=== PATIENT | female | born 1980 | race African-American/Black ===

== ENCOUNTER → 2020-06-21 16:32 | Outpatient (CLI) | payer BC, SELFPAY ==
--- NOTE | ~2020-06-21 | MM_ITS ---
EXAMINATION: MM screening roe BI w guero HISTORY: Screening mammogram TECHNIQUE: Craniocaudal and mediolateral oblique 3-D tomosynthesis images were obtained and synthetic 2-D images were generated. CAD analysis was submitted and interpreted. COMPARISON: No prior mammogram is available for comparison at this institution. BREAST PARENCHYMAL COMPOSITION: The breasts are almost entirely fatty. FINDINGS: There is no evidence of suspicious mass, calcification, or architectural distortion to sugg est malignancy in either breast. There has been no suspicious interval change. IMPRESSION: 1. No mammographic evidence of malignancy. 2. Recommend routine screening mammography in one year. BI-RADS Category 1: Negative Reviewed, dictated and finalized at location A. [facility]
== END ==
PROVIDERS: PCP Physician Assistant; Visit Provider Physician Assistant
DX: Z12.31 Encounter for screening mammogram for malignant neoplasm of breast (principal)
CPT/HCPCS: 77063; 77067

== ENCOUNTER 2020-11-13 13:05 | Emergency (ER) | payer BC, SELFPAY ==
[2020-11-13] VITALS (33 sets, daily range): BP systolic 123–155; BP diastolic 77–112; PULSE 73–113; RESP 11–24; TEMP 36.6; O2SAT 95–100
--- NOTE | ~2020-11-13 | XR_ITS ---
EXAMINATION: XR chest 2V 11/13/2020 13:39 INDICATION: Chest tightness PROCEDURE: 2 view chest COMPARISON: 07/11/2017 FINDINGS: The lungs are clear. The cardiomediastinal silhouette is within normal limits. There are no pleural effusions. There is no pneumothorax suspected. IMPRESSION: 1: NO ACUTE CARDIOPULMONARY DISEASE. Reviewed, dictated and finalized at location B.
--- NOTE | 2020-11-13 13:09 | ECG_ITS ---
Measurements Intervals Prosser Rate: 87 P: 34 OK: 120 QRS: -12 QRSD: 85 T: 35 QT: 356 QTc: 429 Interpretive Statements SINUS RHYTHM BORDERLINE R WAVE PROGRESSION, ANTERIOR LEADS BORDERLINE ECG Electronically Signed On 11-13-2020 13:32:34 CDT by Carlos Montana D.O.
[2020-11-13 13:28] LABS: Basophils Percent Auto 0.5 % (0.2-1.2); Eosinophils Percent Auto 0.5 % (0-4.4); Hematocrit 41.8 % (37.0-47.0); Hemoglobin 13.2 g/dL (12.0-15.0); Immature Granulocyte Absolute 0.02 K/mm3 (0.00-0.031); Immature Granulocyte Percent A 0.3 % (0-0.5); Lymphocytes Absolute Auto 1.83 K/mm3 (0.9-3.2); Lymphocytes Percent Auto 29.8 % (18.3-44.2); Mean Corpuscular HGB Conc 31.6 g/dl (32-36); Mean Corpuscular Hemoglobin 29.3 pg (26-34); Mean Corpuscular Volume 92.9 fl (80-100); Mean Platelet Volume 10.9 fl (7.4-10.4); Monocytes Absolute Auto 0.4 K/mm3 (0.1-0.6); Monocytes Percent Auto 6.7 % (2.6-8.5); Neutrophils Absolute Auto 3.8 K/mm3 (1.3-6.7); Neutrophils Percent Auto 62.2 % (45.5-73.1); Platelet Count Result 233 k/mm3 (150-375); Red Cell Distribution Width 13.3 % (11.5-14.5); White Blood Count 6.1 K/mm3 (4.5-10.0)
[2020-11-13 13:38] LABS: Anion Gap 9 mmol/L (8-16); Blood Urea Nitrogen 8 mg/dL (7-17); Calcium 9.4 mg/dL (8.4-10.2); Carbon Dioxide 27 mmol/L (22-30); Chloride 105 mmol/L (98-107); Estimated CRCL calculation 90 ml/min; Estimated Glomerular Filt Rate > 60; Glucose 127 mg/dL (65-105); INR 1.1; Potassium 4.2 mmol/L (3.4-5.0); Prothrombin Time 14.9 Seconds (11.1-14.7); Sodium 141 mmol/L (137-145)
[2020-11-13 13:39] LABS: Partial Thromboplastin Time 31.5 SECONDS (22.3-36.8)
[2020-11-13 13:50] LABS: Troponin I < 0.012 ng/mL (0.000-0.034)
[2020-11-13] MEDS: ASPIRIN 81 MG CHEWABLE TABLET 324 MG PO (14:44)
--- NOTE | 2020-11-13 15:04 | ED.GENADULT ---
HPI - General Adult General Chief complaint: Chest Pain Stated complaint: chest tightness Time Seen by Provider: 11/13/20 14:39 Source: patient History of Present Illness HPI narrative: Patient is a 40 y/o female complaining of waxing and waning chest pain starting several days ago. She states that her pain is located in midsternal area with radiation to back. She describes her pain as a pressure/tightness and rates it as 2-3/10. There is no alleviating or exacerbating factor. She has no SOB, cough or fever. Related Data Allergies Allergy/AdvReac Type Severity Reaction Status Date / Time No Known Allergies Allergy Unverified 11/09/15 10:08 Review of Systems Constitutional: Constitutional: Denies chills, Denies fever(s), Denies headache(s) and Denies weakness Eyes: Eyes: Denies blurry vision ENT: Denies headache(s) and Denies neck pain Cardiovascular: Cardiovascular: Reports chest pain and Denies dyspnea Respiratory: Respiratory: Denies cough and Denies dyspnea Gastrointestinal: Gastrointestinal: Denies abdominal pain, Denies diarrhea, Denies nausea and Denies vomiting Genitourinary: Genitourinary: Denies hematuria and Denies dysuria Musculoskeletal: Musculoskeletal: Denies back pain and Denies neck pain Neurologic: Denies headache(s) and Denies weakness PMFSH Past Medical History Medical History Borderline diabetes Hyperlipidemia Social History Social History Smoking status: Never smoker Exam Const: General: no acute distress and well developed Orientation/consciousness: oriented to person, oriented to place, oriented to time and patient oriented x3 HENMT: Head: normocephalic Ears: external ears normal General nose exam: Normal external nose present Eyes: General: appearance normal, both eyes and all related structures Conjunctivae: conjunctivae normal Neck: Neck: normal visual inspection and full ROM Chest: Chest palpation & inspection: normal inspection of the chest and no tenderness Resp: Effort & Inspection: normal respiratory effort Auscultation: clear to auscultation bilaterally Cardio: Rate: regular rate Rhythm: regular rhythm GI: GI Palp: No abdominal tenderness and Yes Soft to palpation Skin: General skin exam: normal color and turgor normal Neuro: General: oriented to person, oriented to place, oriented to time and patient oriented x3 Cognition (Neuro): normal cognition Extrem: General: normal to inspection, full ROM and no pedal edema Psych: Appearance: grossly normal Mental Status: mental status grossly normal Affect: normal affect Course Vital Signs Vital signs: Vital Signs Temperature 36.6 C 11/13/20 13:20 Pulse Rate 90 11/13/20 13:20 Respiratory Rate 16 11/13/20 13:20 Blood Pressure 143/82 H 11/13/20 13:20 Pulse Oximetry 99 11/13/20 13:20 Temperature 36.6 C 11/13/20 13:20 Pulse Rate 85 11/13/20 18:01 Respiratory Rate 21 H 11/13/20 18:01 Blood Pressure 137/86 11/13/20 18:01 Pulse Oximetry 100 11/13/20 18:01 Medical Decision Making Vital Signs Vital Signs: Vital Signs Temperature 36.6 C 11/13/20 13:20 Pulse Rate 90 11/13/20 13:20 Respiratory Rate 16 11/13/20 13:20 Blood Pressure 143/82 H 11/13/20 13:20 Pulse Oximetry 99 11/13/20 13:20 Temperature 36.6 C 11/13/20 13:20 Pulse Rate 85 11/13/20 18:01 Respiratory Rate 21 H 11/13/20 18:01 Blood Pressure 137/86 11/13/20 18:01 Pulse Oximetry 100 11/13/20 18:01 Lab Data Result diagrams: 11/13/20 13:20 11/13/20 13:20 Labs: Lab Results 11/13/20 11/13/20 11/13/20 Range/Units 13:20 13:20 13:20 WBC 6.1 (4.5-10.0) K/mm3 RBC 4.50 (4.2-5.4) M/mm3 Hgb 13.2 (12.0-15.0) g/dL Hct 41.8 (37.0-47.0) % MCV 92.9 (80-100) fl MCH 29.3 (26-34) pg MCHC 31.6 L (32-36) g/dl RDW 13.3
[2020-11-13 17:01] LABS: Troponin I < 0.012 ng/mL (0.000-0.034)
== END 2020-11-13 19:16 | disposition home or self-care (01) ==
PROVIDERS: Emergency Provider Emergency Medicine; PCP Physician Assistant
DX: R07.2 Precordial pain (principal); R73.03 Prediabetes; E78.5 Hyperlipidemia, unspecified; R94.31 Abnormal electrocardiogram [ECG] [EKG]
CPT/HCPCS: 36415; 71046; 80048; 84484; 85025; 85610; 85730; 93005; 99284; A9270

== ENCOUNTER 2024-09-26 12:57 | Outpatient (CLI) | payer OTHER, SELFPAY ==
--- NOTE | ~2024-09-26 | MM_ITS ---
EXAMINATION: MM screening roe BI w guero HISTORY: Screening TECHNIQUE: Craniocaudal and mediolateral oblique 3-D tomosynthesis images were obtained and synthetic 2-D images were generated. CAD analysis was submitted and interpreted. COMPARISON: 06/21/2020 BREAST PARENCHYMAL COMPOSITION: Not dense: There are scattered areas of fibroglandular density. FINDINGS: There is no evidence of suspicious mass, calcification, or architectural distortion to sugg est malignancy in either breast. There has been no suspicious interval change. IMPRESSION: 1. No mammographic evidence of malignancy. 2. Recommend routine screening mammography in one year. BI-RADS Category 1: Negative Reviewed, dictated and finalized at location A.
--- OUTSIDE RECORDS SUMMARY | 2024-09-26 13:29 | XMS_ITS | Data Portability ---
Author Organization [facility] Address [address] [place] [address] Care Team Providers Care Associate Business Analyst Name Role Phone ROBINA MELGAR Primary Care Provider Unavailab le Assessment Encounter Date Assessment Date Assessment LastModified by Organization Details LastModified Time 08/15/2024 08/15/2024 due for pap smear due for mammogram UTD at [facility] UTD at Dr. Venu ruby due. Not available 08/15/2024 11:54:45 Plan of Treatment Reminders Order Date Submit Date Provider Last Modified By Organization Details Last Modified Time Details Appointments None recorded. Lab CMP, serum or plasma [facility], [address], [place], [address], 5 10:31:35 CBC w/ auto diff 2024 0[email or web address], [address], [place], [address], 5 10:31:35 lipid panel, serum 2024 025 [email or web address], [address], [place], [address], 5 10:31:35 noninvasive colorectal cancer DNA + occult blood screening, QL, stool 2024 025 [facility] (Cologuard Orders Only), [address], [address], [place], [address], 09:33:50 HbA1c (hemoglobin A1c), blood 2024 025 [email or web address], [address], [place], [address], 10:31:34 insulin, serum 2024 025 [email or web address], [address], [place], [address], 10:31:34 TSH + free T4, serum 2024 025 [email or web address], [address], [place], [address], 10:31:35 Referral None recorded. Procedures None recorded. Surgeries None recorded. Imaging MAMMO, screening, digital, bilateral [address] [facility], [address], [address], [place], [address], 10:31:52 Medication Orders None recorded. Patient TargetsNo targets recorded. Patient Instructions Encounter Date Encounter Id Patient Instructions Last Modified By Organization Details Last Modified Time 08/15/2024 [id number] A healthy lifestyle: care instructions Not available 08/15/2024 11:54:18 Reason for Referral None Reported. Results Created Date Observation Date Name Description Value Unit Range Abnormal Flag Note LastModifiedBy Organization Detail LastModifiedTime 08/26/1908/25/2024 COLOG UARD cologuard result reportable NEGATI VE negati ve normal NEGAT PAT TEST RESUL T. A negat pat Colog uard resul t indic ates a low likel ihood that a color ectal cance r (CRC) or advan luciano adeno ma (abi omato us polyp s with more advan luciano pre-m align ant featu res) is prese nt. The [facility] e that a perso n with a negat pat Colog uard test has a color ectal cance r is less than 1 in 1500 (nega tive predi ctive value >99.9 %) or has an advan luciano adeno ma is less than 5.3% (nega tive predi ctive value 94.7% ). These data are based on a prosp ectiv e cross -sect ional study of 10,00 0 indiv idual s at [place] ge risk for color ectal cance r who were scree loy with both Colog uard and colon oscop y. (Impe alicia T. et al, N Engl J Med 2014; 370(1 4):12 86-12 97) The jostin l value (refe rence range ) for this assay is negat pat. COLOG UARD RE-SC REENI NG RECOM MENDA TION: Perio dic color ectal cance r scree vinnie is an impor tant part of preve ntive healt hcare for asymp tomat ic indiv idual s at [place] ge risk for color ectal cance r. Follo wing a negat pat Colog uard resul t, the Ameri can Cance r Socie ty and U.S. Multi -Soci ety Task Force scree vinnie guide lines recom mend a Colog uard re-sc reeni ng inter bhanu of 3 years . Refer ences : Ameri can Cance r Socie ty Guide line for Color ectal Cance r Scree vinnie: https ://ena w.can cer.o rg/ca ncer/ colon -rect al-ca ncer/ detec tion- diagn osis- stagi ng/ac s-rec ommen datio ns.ht ml.; Bryn INGRAM, Johan bunch CR, Ayden MATAMOROS, Color ectal Cance r Scree vinnie: Recom menda tions for Physi cians and Patie nts from the U.S. Multi -Soci ety Task Force on Color ectal Cance r Scree vinnie , Brooke Daigle oente rolog y 2017; 112:1 016-1 030. TEST DESCR IPTIO N: [place] algor ithmi c evelina sis of stool DNA-b iomar kers with hemog lobin immun oassa y. Quant itati ve value s of indiv idual bioma rkers are not repor table and are not assoc iated with indiv idual bioma rker resul t refer ence range s. Colog uard is inten ded for color ectal cance r scree vinnie of adult s of eithe r sex, 45 years or older , who are [facility] for color ectal cance r (CRC) . Colog uard has been appro anne for use by the U.S. FDA. The perfo rmanc e of Colog uard was estab lishe d in a cross secti onal study of [facility] adult s aged 50-84 . Colog uard perfo rmanc e in patie nts ages 45 to 49 years was estim ated by sub-g roup evelina sis of near- age group s. Colon oscop ies perfo rmed for a posit pat resul t may find as the most clini krystal signi norberto t luis daniel n: color ectal cance r [4.0% ], advan luciano adeno ma (incl uding sessi le jennifer steve polyp s great er than or equal to 1cm diame ter) [20%] or non- advan luciano adeno ma [31%] ; or no color ectal neopl ty [45%] . These estim ates are deriv ed from a prosp ectiv e cross -sect ional scree vinnie study of 10,00 0 indiv idual s at [facility] risk for color ectal cance r who were scree loy with both Colog uard and colon oscop y. (Ajith Rodríguez al, N Engl J Med 2014; 370(1 4):12 86-12 97.) Colog uard may produ ce a false negat pat or false posit pat resul t (no color ectal cance r or preca ncero us polyp prese nt at colon oscop y follo w up). A negat pat Colog uard test resul t does not guara ntee the absen ce of CRC or advan luciano adeno ma (pre- cance r). The curre nt Colog uard scree vinnie inter bhanu is every 3 years . (Willa Neff r Socie ty and U.S. Multi -Soci ety Task Force ). Colog uard perfo rmanc e data in a 10,00 0 patie nt pivot al study using colon oscop y as the refer ence metho d can be acces sed at the follo wing locat ion: www.e xactl abs.c om/re sults . Addit ional descr iptio n of the Colog uard test proce ss, warni ngs and preca ution s can be found at www.c stacy yogesh.c om. Not Available [facility] (Cologuard Orders Only) [address], [place], [address], 08/29/2024 09:33:49 Result Notes None recorded. Problems Name Problem SNOMED Code Status Onset Date Resolution Date Notes Provider Name and Address Organization Details Recorded Time Body mass index 30+ - obesity 850445247 Active 2024 Karena Troy MA null, [place] - [facility] 11:34:47 Obesity 102358057 Active 2024 RICKEY Lewis Attn: Jassi dumont,[address] [place], [address], [facility] - SI 5 11:41:25 Hyperlipidemia 53228664 Active 2024 RICKEY Lewis Attn: Jassi dumont,[address] [place], [address], [facility] - SI 5 11:45:07 Family history of malignant neoplasm of breast in first degree relative 553765389 Active 2024 RICKEY Lewis Attn: Jassi dumont,[address] [place], [address], [facility] - SI 5 11:56:37 Long-term current use of drug therapy 908636739 Active 2024 RICKEY Lewis Attn: Jassi dumotn,[address] [place], [address], [facility] 22:50:53 Problem Notes None recorded. Procedures Surgical History Date Name Laterality Status Provider Name and Address Organization Details Recorded Time Appendectomy completed Karena Troy MA [facility] 08/15/2024 12:26:44 Imaging Results None recorded. Procedure Notes None recorded. Medical Equipment None Reported. Allergies No known drug allergies Medications Name Sig Start Date Stop Date Status Note LastModified by Organization Details LastModified Time spironolactone 100 mg tablet Take 1 tablet every day by oral route as needed. active Not Available Not Available No t Available Vitals Date Recorded Body weight Body mass index (BMI) Body height Oxygen saturation Oxygen saturation in Arterial blood by Pulse oximetry Heart rate Systolic blood pressure Diastolic blood pressure Provider Name and Address Organization Details Last Updated DateTime 011678. 98 g 39.3 kg/m2 165.74 cm 98 % 98 % 88 /min 112 mm[Hg] 80 mm[Hg] Karena Troy MA [facility] 11:36:19 Date Recorded Respiratory rate Systolic blood pressure Diastolic blood pressure Provider Name and Address Organization Details Last Updated DateTime 08/15/2024 16 /min 110 mm[Hg] 80 mm[Hg] RICKEY Lewis Attn: Accounting, [address], [place], [address], [facility] 08/15/2024 11:53:51 Social History Question Answer Notes LastModified by Organizat ion Details LastModified Time Tobacco Smoking Status Never Smoker Karena Troy MA null, [facility] 08/15/2024 11:33:53 Do You Have An Advance Directive? No Information not available 08/15/2024 What Is Your Level Of Alcohol Consumption? None Information not available 08/15/2024 Are You Blind Or Do You Have Difficulty Seeing? Yes Glasses Information not available 08/15/2024 What Is Your Level Of Caffeine Consumption? Occasional Information not available 08/15/2024 Are You Currently Employed? Yes Information not available 08/15/2024 Are You Deaf Or Do You Have Serious Difficulty Hearing? No Information not available 08/15/2024 What Type Of Diet Are You Following? 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 08/15/2024 Information not available 08/15/2024 What Is Your Relationship Status? Information not available 08/15/2024 Do You Use Your Seat Belt Or Car Seat Routinely? Yes Information not available 08/15/2024 Do You Use Any Illicit Or Recreational Drugs? No Information not available 08/15/2024 Do You Use Sunscreen Routinely? No Information not available 08/15/2024 Has Tobacco Cessation Counseling Been Provided? No Information not available 08/15/2024 Do You Or Have You Ever Used Any Other Forms Of Tobacco Or Nicotine? No Information not available 08/15/2024 Sex: Female Functional Status Question Answer Note LastModified by Organization D etails LastModified Time Are you able to care for yourself? Yes Information n ot available 08/15/2024 What is your exercise level? None Information not available 08/15/2024 Mental Status None recorded. Family History Relationship Description Onset Age of this Age Resolved Age Notes LastModified by Organization Details LastModified Time Maternal Aunt Multiple sclerosis [email or web address] Not available 2024 11:57:15 Maternal Aunt Amyotrophic lateral sclerosis [email or web address] Not available 2024 11:57:22 Maternal Aunt Family history of breast cancer [email or web address] Not available 2024 11:57:41 Mother Family history of breast cancer [email or web address] Not available 2024 11:57:32 Sister Blood coagulation disorder [email or web address] Not available 2024 12:26:56 Medical History Condition Response Coronary Artery Disease N Other N High Blood Pressure N Atrial Fibrillation N Kidney or Bladder Problems N Thyroid Problems N GI Problems N Depression N COPD N Blood Clots N Have you had a mammogram in the last yea r? N Skin Problems N Anemia N Heart Attack ([place]) N Anxiety Disorder N Diabetes N Muscle, Joint, or Bone Problems N Seizures/Epilepsy N Have you had a colonoscopy in the last 1 0 years? N Acid Reflux (GERD) N Cancer N Stroke N Asthma N Allergies N Have you had a PSA blood test in the las t year? N High Cholesterol Y Hepatitis N Liver Disease N Headaches N Heart Failure N Osteoporosis N Gynecological History Statement/Question Response Menses Monthly N Obstetrics History GPAL:G 0 P 0 0 0 0 Immunizations Vaccine Type Date Status Note Provider Nam e and Address Organization Details Recorded Time COVID-19, mRNA, LNP-S, PF, 30 mcg/0.3 mL dose 2 completed MERLENE [place], [place] - [facility] 08/15/2024 11:32:59 COVID-19 vaccine, vector-nr, rS-Ad26, PF, 0.5 mL 1 completed MERLENE [place], [place] [facility] 08/15/2024 11:32:59 influenza, unspecified formulation 8 completed MERLENE [place], [place] [facility] 08/15/2024 11:32:59 Influenza, split virus, trivalent, preservative 1 completed MERLENE [place], [place] [facility] 08/15/2024 11:32:59 Influenza, split virus, quadrivalent, PF 3 completed MERLENE [place], [place] [facility] 08/15/2024 11:32:59 Past Encounters Encounter ID Performer Location Encounter Start Date Encounter Closed Date Diagnosis/Indication Diagnosis SNOMED-CT Code Diagnosis ICD10 Code Diagnosis Note [id number] Bruce Eid MD [facility] - [facility] Lopez [address] [place] [address] 08/15/2024 11:24:17 08/15/2024 12:42:57 Body mass index 30+ - obesity 314833155 Z68.39 BMI is 39.3 Obesity 294362025 E66.9 discussed healthy diet, exercise, controllin g carbohydra tian and added sugars in the diet, continue weight loss efforts Adult heal th examination 458686888 Z00.00 annual wellness completed Diabetes m ellitus screening 967181210 Z13.1 A1c screening ordered Long-term current use of drug therapy 843092530 Z79.899 cmp, cbc and b12, folate labs are due Hyperlipidemia 49171381 E78.5 Fasting lipid panel ordered Screening mammography 24 805255 Z12.31 Annual mammogram is due Screening for malignant neoplasm of colon 287352823 Z12.11 Patient opts for Cologuard screening method Family his tory of malignant neoplasm of breast in first degree relative 650334928 Z80.3 Mother and maternal aunt with breast cancer hx Health Concerns Section Related Observation LastModified by Organization Detai ls LastModified Time None Recorded Concern Status LastModified by Organization Details LastModified Time None Recorded Advance Directives Directive N: Payers Encounter Date Sequence Insurance Name Policy Number Policy Fatima Covered Member ID Fatima Member ID Guarantor Name 08/15/2024 1 [facility] [id number] Bhavani Langley [id number] Bhavani Langley Notes Date Note Type Note Provider Name and Address Organization Details Recorded Time 08/15/2024 text/html Patient presents for her annual wellness exam reestablishing with provider at new office location. History of hyperlipidemia. She has lost over 30 lb and is interested in getting updated labs to see where her levels checked out. She is also due for breast and colon screening. She does have a family history of breast cancer RICKEY Lewis Attn: Accounting[address] [place], [address], [place] [facility] 08/27/2024 23:07:35 OBGyn Episode No OBEpisode recorded.
--- OUTSIDE RECORDS SUMMARY | 2024-09-26 13:29 | XMS_ITS | Clinical Summary ---
Author Organization [facility] Address [address] [place] [address] Care Team Providers Care Plant Technical Specialist Name Role Phone Nelly Mccurdy DO Primary Care Provider [phone] Social History Tobacco Use Types Packs/Day Years Used Date Smoking Tobacco: Never Assessed Comments Unknown Sex and Gender Information Value Date Recorded Sex Assigned at Not on file Legal Sex Female 6:43 PM CDT Gender Identity Not on file Sexual Orientation Not on file Last Filed Vital Signs Vital Sign Reading Time Taken Comments Blood Pressure 118/74 08/17/2017 2:32 PM CDT Pulse 100 08/17/2017 2:32 PM CDT Temperature - - Respiratory Rate - - Oxygen Saturation - - Inhaled Oxygen Concentration - - Weight 110.8 kg (244 lb 4 oz) 08/17/2017 2:32 PM CDT Height 165.1 cm (5' 5 ) 06/21/2013 2:06 PM OIL ANALYST Body Mass Index 40.65 06/21/2013 2:06 PM OIL ANALYST Plan of Treatment Health Maintenance Due Date Last Done Comments Cervical Cancer Screening Pa p Smear (Age 30 to 64) Every 3 Years 1978 Colorectal Cancer Screening Colonoscopy (10 Years) 1978 Annual Physical 1981 Hepatitis C 1996 Hepatitis B Vaccines (1 of 3 - 19+ 3-dose series) 1997 Cervical Cancer Screening Pa p with HPV Testing (Age 30 to 64) Every 5 Years 2008 Cervical Cancer Screening with HPV 2008 Mammogram Screening 2018 COVID-19 Vaccine (2023-2 5 season) 2024 DTaP, Tdap and Td Vaccines ( 2 - Td or Tdap) 02/28/2025 02/28/2015 HPV Vaccines Aged Out No longer eligi ble based on patient's age to complete this topic Meningococcal B Vaccine Aged Out No l onger eligible based on patient's age to complete this topic Meningococcal Vaccine Aged Out No josé manuel lizzy eligible based on patient's age to complete this topic Pneumococcal Vaccine: Pediat rics (0 to 5 Years) and At-Risk Patients (6 to 49 Years) Aged Out No longer eligi ble based on patient's age to complete this topic RSV Immunizations Under 20 Months Aged Out No longer eligible based on patient's age to complete this topic Care Teams Plant Technical Specialist Relationship Specialty Start Date End Date Nelly Mccurdy DO [address] [place] [address] PCP - General 05/11/15
--- OUTSIDE RECORDS SUMMARY | 2024-09-26 13:29 | XMS_ITS | Clinical Summary ---
Author Organization [facility] Address [address] [place] [address] Care Team Providers Care Clinical Trial Associate Name Role Phone Fay Asher Primary Care Pr ovider Source Comments [facility],non-owned Affiliates and Associated Physician Practices is amultiple site organization consisting of ambulatory clinics and hospital sitesin [place], [place], [place]. This disclosure is being madepursuant to the Care Everywhere program and may not contain all information available regarding this patient. Last updated 18.[facility] Allergies No known active allergies Medications * Be aware that medications may not be up to date on this document. Alwaysverify current medications with the patient. amoxicillin-cla vulanate (AUGMENTIN) 875-125 MG tablet Take by mouth 2 times daily 05/11/2018 Active tobramycin-dexa methasone (TOBRADEX) 0.3-0.1 % ophthalmic suspension Instill into both eyes 4 times daily 05/08/2018 Active hydrOXYzine hcl (ATARAX) 25 MG tablet as needed 05/07/2018 Active ibuprofen (MOTRIN) 600 MG tablet as needed 02/24/2018 Active methylPREDNISol one (MEDROL DOSEPAK) 4 MG tablet as directed 05/01/2018 Active ketoconazole (NIZORAL) 2 % shampooIndicati ons:Other seborrheic dermatitis Apply to wet hair and face, leave on for 3 minutes, then rinse; three times weekly. 30 days supply 120 mL 3 05/12/2018 Active hydrocortisone (HYTONE) 2.5 % ointmentIndicat ions:Other seborrheic dermatitis Apply to facial lesions twice daily PRN. 30 days supply. 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 Gender Identity Not on file Sexual Orientation Not on file Plan of Treatment Health Maintenance Due Date Last Done Comments COLOGUARD (AGES 45-75) - COL ON CA SCREENING 1978 COLON MONITORING 1978 COLONOSCOPY - COLON CA SCREENING 1978 CT COLONOGRAPHY - COLON CA SCREENING 1978 Colorectal Cancer Screening 1978 FIT - COLON CA SCREENING 1978 FLEX SIG - COLON CA SCREENING 1978 LIPID TESTING 1978 MAMMOGRAM 1978 HIV SCREENING 1993 HEPATITIS C SCREENING 09/09/1996 DTAP/TDAP/TD VACCINES (1 - Tdap) 1997 HEPATITIS B VACCINE (1 of 3 - 19+ 3-dose series) 1997 COVID-19 VACCINE (1 - 2023-2 5 season) 2024 DEPRESSION SCREENING 05/25/2024 INFLUENZA VACCINE (Season Ended) 2025 02/24/20 18 ZOSTER VACCINE (1 of 2) 2028 HIB VACCINE Aged Out No longer eligi ble based on patient's age to complete this topic HPV VACCINE Aged Out No longer eligi ble based on patient's age to complete this topic MENINGOCOCCAL (Group B) VACC INE SHARED DECISION-MAKING Aged Out No longer eligibl e based on patient's age to complete this topic MENINGOCOCCAL GROUPS A/C/Y/W VACCINE Aged Out No longer eligible b ased on patient's age to complete this topic PNEUMOCOCCAL VACCINE Aged Out No long er eligible based on patient's age to complete this topic Care Teams Clinical Trial Associate Relationship Specialty Start Date End Date Fay Asher PA [address] [place] [id number] [facility] - General 05/03/18
--- OUTSIDE RECORDS SUMMARY | 2024-09-26 13:29 | XMS_ITS | Clinical Summary ---
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 Gender Identity Not on file Sexual Orientation Not on file Plan of Treatment Health Maintenance Due Date Last Done Comments Hepatitis C Virus (HCV) Screening 1978 TdaP Immunization 1978 Hepatitis B Immunization (1 of 3 - 19+ 3-dose series) 1997 Pap Smear 09/15/1999 Cervical Cancer Screening (CCS) 2008 HPV/Cotest 2008 Discussion re Starting/Frequ ency of Mammograms 2018 Colonoscopy 09/15/2023 Colorectal Cancer Screening 09/15/2023 Influenza Immunization (#1) 2024 SARS-COV-2 Immunization ( season) 2024 Respiratory Syncytial Virus (RSV) Immunization (Adult) (1 - 1-dose 75+ series) 2053 Meningococcal Immunization (ACWY) Aged Out No longer eligible based on patient's age to complete this topic Pneumococcal Immunization Combined Aged Out No longer eligible based on patient's age to complete this topic Rotavirus Immunization Aged Out No lo nger eligible based on patient's age to complete this topic
--- OUTSIDE RECORDS SUMMARY | 2024-09-26 13:29 | XMS_ITS | Data Portability ---
Author Organization [facility], Main Office Address [address] [place] [address] Assessment No assessment recorded. Plan of Treatment Reminders Order Date Submit Date Provider Last Modified By Organization Details Last Modified Time Details Appointments None recorded. Lab CMP, serum or plasma 2022 023 [email or web address] O[facility]DA Alex[facility], [address], [place], [address], 4 09:44:07 lipid panel, serum 2022 023 [email or web address] OANDA Alexia [facility], [address], [place], [address], 4 09:44:07 Referral None recorded. Procedures None recorded. Surgeries None recorded. Imaging MAMMO, screening, bilateral 2022 023 [email or web address] Not available 4 09:44:12 Medication Orders rosuvastati n 10 mg tablet 2022 023 [email or web address] [id number] [address] [facility], [place], [place], [id number], 3 20:46:18 Patient TargetsNo targets recorded. Patient InstructionsNo instructions recorded. Reason for Referral None Reported. Results Created Date Observation Date Name Description Value Unit Range Abnormal Flag Note LastModifiedBy Organization Detail LastModifiedTime 06/01/19 22 06/04/2021 HEPAT IC FUNCT ION PANEL protein, total 7.2 g/dL 6.1-8. 1 normal Not Available [facility] [address] [address], [place], [address], 06/04/2021 03:26:24 06/01/19 22 06/04/2021 HEPAT IC FUNCT ION PANEL albumin 4.3 g/dL 3.6-5. 1 normal Not Available [address], [address], 06/04/2021 03:26:24 06/01/19 22 06/04/2021 HEPAT IC FUNCT ION PANEL globulin 2.9 g/dL_ (calc ) 1.9-3. 7 normal Not Available [address] [address] [place], [address], 06/04/2021 03:26:24 06/01/19 22 06/04/2021 HEPAT IC FUNCT ION PANEL albumin/glob ulin ratio 1.5 (calc ) 1.0-2. 5 normal Not Available [address], [address], 06/04/2021 03:26:24 06/01/19 22 06/04/2021 HEPAT IC FUNCT ION PANEL bilirubin, total 0.4 mg/dL 0.2-1. 2 normal Not Available [address], [address], 06/04/2021 03:26:24 06/01/19 22 06/04/2021 HEPAT IC FUNCT ION PANEL bilirubin, direct 0.1 mg/dL < or = 0.2 normal Not Available [address], [address], 06/04/2021 03:26:24 06/01/19 22 06/04/2021 HEPAT IC FUNCT ION PANEL bilirubin, indirect 0.3 mg/dL _(bebeto c) 0.2-1. 2 normal Not Available [address], [address], 06/04/2021 03:26:24 06/01/19 22 06/04/2021 HEPAT IC FUNCT ION PANEL alkaline phosphatase 60 U/L 31-125 normal Not Available [address] [address] [place], [address], 06/04/2021 03:26:24 06/01/19 22 06/04/2021 HEPAT IC FUNCT ION PANEL AST 22 U/L 10-30 normal Not Available [address] [address] [place], [address], 06/04/2021 03:26:24 06/01/19 22 06/04/2021 HEPAT IC FUNCT ION PANEL ALT 30 U/L 6-29 high Not Available [address], [address], 06/04/2021 03:26:24 06/01/19 22 06/04/2021 LIPID PANEL WITH RATIO S cholesterol, total 151 mg/dL <200 normal Not Available [address], [address], 06/04/2021 03:26:24 06/01/19 22 06/04/2021 LIPID PANEL WITH RATIO S HDL cholesterol 41 mg/dL > or = 50 low Not Available [address], [address], 06/04/2021 03:26:24 06/01/19 22 06/04/2021 LIPID PANEL WITH RATIO S triglyceride s 139 mg/dL <150 normal Not Available [address], [address], 06/04/2021 03:26:24 06/01/19 22 06/04/2021 LIPID PANEL WITH RATIO S LDL-choleste rol 86 mg/dL _(bebeto c) normal Refer ence range : <100 Nathaniel able range <100 mg/dL for prima ry preve ntion ; <70 mg/dL for patie nts with CHD or diabe tic patie nts with > or = 2 CHD risk facto rs. LDL-C is now calcu lated using the [facility]-Hop kins jose perkins n, which is a valid ated novel metho d meei britt fisher r accur acy than the Fried randell equat ion in the estim ation of LDL-C . Marilu n SS et al. HARRIETT. 2013; 310(1 9): 2061- 2068 (http ://ed ucati on.Qu aideMini vinaySeriously. com/f aq/FA Q164) Not Available OANDA [address], [address], 06/04/2021 03:26:24 06/01/19 22 06/04/2021 LIPID PANEL WITH RATIO S chol/HDLC ratio 3.7 (calc ) <5.0 normal Not Available [address], [address], 06/04/2021 03:26:24 06/01/19 22 06/04/2021 LIPID PANEL WITH RATIO S LDL/HDL ratio 2.1 (calc ) Below avera ge Risk: <2.34 [place] ge Risk: 2.35- 4.12 Moder ate Risk: 4.13- 5.56 High Risk: >5.57 Not Available [address], [address], 06/04/2021 03:26:24 06/01/19 22 06/04/2021 LIPID PANEL WITH RATIO S non HDL cholesterol 110 mg/dL _(bebeto c) <130 normal For patie nts with diabe tian plus 1 major ASCVD risk facto r, treat ing to a non-H DL-C goal of <100 mg/dL (LDL- C of <70 mg/dL ) is consi dered a theraxel peboyd c optio n. Not Available OANDA [address], [address], 06/04/2021 03:26:24 07/06/19 22 07/09/2021 CBC (INCL UDES DIFF/ PLT) white blood cell count 5.3 thous and/u L 3.8-10 .8 normal Not Available Rip van Wafels [address], [address], 07/09/2021 04:16:12 07/06/19 22 07/09/2021 CBC (INCL UDES DIFF/ PLT) red blood cell count 4.49 stacy on/uL 3.80-5 .10 normal Not Available [address], [address], 07/09/2021 04:16:12 07/06/19 22 07/09/2021 CBC (INCL UDES DIFF/ PLT) hemoglobin 13.1 g/dL 11.7-1 5.5 normal Not Available [address], [address], 07/09/2021 04:16:12 07/06/19 22 07/09/2021 CBC (INCL UDES DIFF/ PLT) hematocrit 40.4 % 35.0-4 5.0 normal Not Available [address], [address], 07/09/2021 04:16:12 07/06/19 22 07/09/2021 CBC (INCL UDES DIFF/ PLT) MCV 90.0 fL 80.0-1 00.0 normal Not Available [address], [address], 07/09/2021 04:16:12 07/06/19 22 07/09/2021 CBC (INCL UDES DIFF/ PLT) MCH 29.2 pg 27.0-3 3.0 normal Not Available [address], [address], 07/09/2021 04:16:12 07/06/19 22 07/09/2021 CBC (INCL UDES DIFF/ PLT) MCHC 32.4 g/dL 32.0-3 6.0 normal Not Available [address], [address], 07/09/2021 04:16:12 07/06/19 22 07/09/2021 CBC (INCL UDES DIFF/ PLT) RDW 12.7 % 11.0-1 5.0 normal Not Available [address], [address], 07/09/2021 04:16:12 07/06/19 22 07/09/2021 CBC (INCL UDES DIFF/ PLT) platelet count 196 thous and/u L 140-40 0 normal Not Available [address], [address], 07/09/2021 04:16:12 07/06/19 22 07/09/2021 CBC (INCL UDES DIFF/ PLT) MPV 11.8 fL 7.5-12 .5 normal Not Available [address], [address], 07/09/2021 04:16:12 07/06/19 22 07/09/2021 CBC (INCL UDES DIFF/ PLT) absolute neutrophils 1876 cells /uL 1500-7 800 normal Not Available [address], [address], 07/09/2021 04:16:12 07/06/19 22 07/09/2021 CBC (INCL UDES DIFF/ PLT) absolute lymphocytes 2963 cells /uL 850-39 00 normal Not Available [address], [address], 07/09/2021 04:16:12 07/06/19 22 07/09/2021 CBC (INCL UDES DIFF/ PLT) absolute monocytes 371 cells /uL 200-95 0 normal Not Available [address], [address], 07/09/2021 04:16:12 07/06/19 22 07/09/2021 CBC (INCL UDES DIFF/ PLT) absolute eosinophils 58 cells /uL 15-500 normal Not Available [address], [address], 07/09/2021 04:16:12 07/06/19 22 07/09/2021 CBC (INCL UDES DIFF/ PLT) absolute basophils 32 cells /uL 0-200 normal Not Available [address], [address], 07/09/2021 04:16:12 07/06/19 22 07/09/2021 CBC (INCL UDES DIFF/ PLT) neutrophils 35.4 % normal Not Available [facility] [address], [address], 07/09/2021 04:16:12 07/06/19 22 07/09/2021 CBC (INCL UDES DIFF/ PLT) lymphocytes 55.9 % normal Not Available [facility] [address], [address], 07/09/2021 04:16:12 07/06/19 22 07/09/2021 CBC (INCL UDES DIFF/ PLT) monocytes 7.0 % normal Not Available [facility] [address], [address], 07/09/2021 04:16:12 07/06/19 22 07/09/2021 CBC (INCL UDES DIFF/ PLT) eosinophils 1.1 % normal Not Available [facility] [address], [address], 07/09/2021 04:16:12 07/06/19 22 07/09/2021 CBC (INCL UDES DIFF/ PLT) basophils 0.6 % normal Not Available [facility] [address], [address], 07/09/2021 04:16:12 07/06/19 22 07/09/2021 HEMOG LOBIN A1C hemoglobin A1C 5.9 %_of_ total _HGB <5.7 high For someo ne witho ut known diabe tian, a hemog lobin A1c value betwe en 5.7% and 6.4% is consi stent with predi abete s and shoul d be confi rmed with a follo w-up test. For someo ne with known diabe tian, a value <7% indic ates that their diabe tian is well contr olled . A1c targe ts shoul d be indiv idual ized based on durat ion of diabe tian, age, comor bid condi tions , and other consi derat ions. This assay resul t is consi stent with an incre ased risk of diabe tian. Curre ntly, no conse nsus exist s regar ding use of hemog lobin A1c for diagn osis of diabe tian for child shaji. Not Available Rip van Wafels [address], [address], 07/09/2021 04:16:11 07/06/19 22 07/09/2021 BASIC METAB OLIC PANEL glucose 100 mg/dL 65-99 high Fasti ng refer ence inter bhanu For someo ne witho ut known diabe tian, a gluco se value betwe en 100 and 125 mg/dL is consi stent with predi abete s and shoul d be confi rmed with a follo w-up test. Not Available [facility] [address] [place], [address], 07/09/2021 04:16:11 07/06/19 22 07/09/2021 BASIC METAB OLIC PANEL urea nitrogen (BUN) 12 mg/dL 7-25 normal Not Available [facility] [address] [place], [address], 07/09/2021 04:16:11 07/06/19 22 07/09/2021 BASIC METAB OLIC PANEL creatinine 0.82 mg/dL 0.50-1 .10 normal Not Available [facility] [address] [place], [address], 07/09/2021 04:16:11 07/06/19 22 07/09/2021 BASIC METAB OLIC PANEL eGFR non-afr. singaporean 88 mL/mi n/1.7 3m2 > or = 60 normal Not Available [address], [address], 07/09/2021 04:16:11 07/06/19 22 07/09/2021 BASIC METAB OLIC PANEL eGFR 102 mL/mi n/1.7 3m2 > or = 60 normal Not Available [address], [address], 07/09/2021 04:16:11 07/06/19 22 07/09/2021 BASIC METAB OLIC PANEL BUN/creatini ne ratio not applic able (calc ) 6-22 Not Available [address], [address], 07/09/2021 04:16:11 07/06/19 22 07/09/2021 BASIC METAB OLIC PANEL sodium 140 mmol/ L 135-14 6 normal Not Available [address], [address], 07/09/2021 04:16:11 07/06/19 22 07/09/2021 BASIC METAB OLIC PANEL potassium 4.3 mmol/ L 3.5-5. 3 normal Not Available [address], [address], 07/09/2021 04:16:11 07/06/19 22 07/09/2021 BASIC METAB OLIC PANEL chloride 104 mmol/ L 98-110 normal Not Available [address], [address], 07/09/2021 04:16:11 07/06/19 22 07/09/2021 BASIC METAB OLIC PANEL carbon dioxide 27 mmol/ L 20-32 normal Not Available [address], [address], 07/09/2021 04:16:11 07/06/19 22 07/09/2021 BASIC METAB OLIC PANEL calcium 9.8 mg/dL 8.6-10 .2 normal Not Available [address], [address], 07/09/2021 04:16:11 07/06/19 22 07/09/2021 TSH+F REE T4 TSH 4.52 mIU/L high Refer ence Range > or = 20 Years 0.40- 4.50 Pregn andrew Range s First trime ster 0.26- 2.66 Secon d trime ster 0.55- 2.73 Third trime ster 0.43- 2.91 Not Available [address], [address], 07/09/2021 04:16:10 07/06/19 22 07/09/2021 TSH+F REE T4 T4, free 1.0 NG/dL 0.8-1. 8 normal Not Available [address], [address], 07/09/2021 04:16:10 01/17/20 23 01/17/2023 TSH+F REE T4 TSH 2.21 mIU/L normal Refer ence Range > or = 20 Years 0.40- 4.50 Pregn andrew Range s First trime ster 0.26- 2.66 Secon d trime ster 0.55- 2.73 Third trime ster 0.43- 2.91 Not Available [address], [address], 01/17/2023 02:49:31 01/17/20 23 01/17/2023 TSH+F REE T4 T4, free 1.1 NG/dL 0.8-1. 8 normal Not Available [address], [address], 01/17/2023 02:49:31 01/17/20 23 01/17/2023 LIPID PANEL WITH RATIO S cholesterol, total 223 mg/dL <200 high Not Available [id number] [place], [address], 01/17/2023 02:49:32 01/17/2001/17/2023 LIPID PANEL WITH RATIO S HDL cholesterol 38 mg/dL > or = 50 low Not Available [facility] [address] [place], [address], 01/17/2023 02:49:32 01/17/20 23 01/17/2023 LIPID PANEL WITH RATIO S triglyceride s 161 mg/dL <150 high Not Available [facility] [address] [address] [place], [address], 01/17/2023 02:49:32 01/17/20 23 01/17/2023 LIPID PANEL WITH RATIO S LDL-choleste rol 155 mg/dL _(bebeto c) high Refer ence range : <100 Nathaniel able range <100 mg/dL for prima ry preve ntion ; <70 mg/dL for patie nts with CHD or diabe tic patie nts with > or = 2 CHD risk facto rs. LDL-C is now calcu lated using the [facility]-Hop kins harisu gregorio n, which is a valid ated novel masood dorado than the Fried randell equat ion in the estim ation of LDL-C . Marilu vega SS et al. HARRIETT. 2013; 310(1 9): 2061- 2068 (http ://ed ucati on.Qu Jo crump tics. com/f aq/FA Q164) Not Available [facility] [address] [place], [address], 01/17/2023 02:49:32 01/17/2001/17/2023 LIPID PANEL WITH RATIO S chol/HDLC ratio 5.9 (calc ) <5.0 high Not Available [facility] [address] [place], [address], 01/17/2023 02:49:32 01/17/20 23 01/17/2023 LIPID PANEL WITH RATIO S LDL/HDL ratio 4.1 (calc ) Below avera ge Risk: <2.34 [place] Risk: 2.35- 4.12 Moder ate Risk: 4.13- 5.56 High Risk: >5.57 Not Available [address], [address], 01/17/2023 02:49:32 01/17/20 23 01/17/2023 LIPID PANEL WITH RATIO S non HDL cholesterol 185 mg/dL _(bebeto c) <130 high For patie nts with diabe tian plus 1 major ASCVD risk facto r, treat ing to a non-H DL-C goal of <100 mg/dL (LDL- C of <70 mg/dL ) is shira cavazos peuti c optio n. Not Available [address] [address] [place], [address], 01/17/2023 02:49:32 01/17/20 23 01/17/2023 COMPR EHENS PAT METAB OLIC PANEL glucose 91 mg/dL 65-99 normal Fasti ng refer ence inter bhanu Not Available [address], [address], 01/17/2023 02:49:33 01/17/20 23 01/17/2023 COMPR EHENS PAT METAB OLIC PANEL urea nitrogen (BUN) 11 mg/dL 7-25 normal Not Available [address], [address], 01/17/2023 02:49:33 01/17/20 23 01/17/2023 COMPR EHENS PAT METAB OLIC PANEL creatinine 0.75 mg/dL 0.50-0 .99 normal Not Available [address], [address], 01/17/2023 02:49:33 01/17/20 23 01/17/2023 COMPR EHENS PAT METAB OLIC PANEL eGFR 101 mL/mi n/1.7 3m2 > or = 60 normal Not Available [address] [address] [place], [address], 01/17/2023 02:49:33 01/17/20 23 01/17/2023 COMPR EHENS PAT METAB OLIC PANEL BUN/creatini ne ratio SEE NOTE: (calc ) 6-22 Not Repor steve: BUN and Creat inine are withi n refer ence range . Not Available [address], [address], 01/17/2023 02:49:33 01/17/20 23 01/17/2023 COMPR EHENS PAT METAB OLIC PANEL sodium 139 mmol/ L 135-14 6 normal Not Available [address], [address], 01/17/2023 02:49:33 01/17/20 23 01/17/2023 COMPR EHENS PAT METAB OLIC PANEL potassium 4.6 mmol/ L 3.5-5. 3 normal Not Available [address] [address] [place], [address], 01/17/2023 02:49:33 01/17/20 23 01/17/2023 COMPR EHENS PAT METAB OLIC PANEL chloride 103 mmol/ L 98-110 normal Not Available [address], [address], 01/17/2023 02:49:33 01/17/20 23 01/17/2023 COMPR EHENS PAT METAB OLIC PANEL carbon dioxide 28 mmol/ L 20-32 normal Not Available [address], [address], 01/17/2023 02:49:33 01/17/20 23 01/17/2023 COMPR EHENS PAT METAB OLIC PANEL calcium 9.5 mg/dL 8.6-10 .2 normal Not Available [address], [address], 01/17/2023 02:49:33 01/17/20 23 01/17/2023 COMPR EHENS PAT METAB OLIC PANEL protein, total 7.1 g/dL 6.1-8. 1 normal Not Available [address], [address], 01/17/2023 02:49:33 01/17/2001/17/2023 COMPR EHENS PAT METAB OLIC PANEL albumin 4.3 g/dL 3.6-5. 1 normal Not Available [address], [address], 01/17/2023 02:49:33 01/17/20 23 01/17/2023 COMPR EHENS PAT METAB OLIC PANEL globulin 2.8 g/dL_ (calc ) 1.9-3. 7 normal Not Available [address], [address], 01/17/2023 02:49:33 01/17/20 23 01/17/2023 COMPR EHENS PAT METAB OLIC PANEL albumin/glob ulin ratio 1.5 (calc ) 1.0-2. 5 normal Not Available [address], [address], 01/17/2023 02:49:33 01/17/2001/17/2023 COMPR EHENS PAT METAB OLIC PANEL bilirubin, total 0.7 mg/dL 0.2-1. 2 normal Not Available [address], [address], 01/17/2023 02:49:33 01/17/2001/17/2023 COMPR EHENS PAT METAB OLIC PANEL alkaline phosphatase 70 U/L 31-125 normal Not Available [address], [address], 01/17/2023 02:49:33 01/17/2001/17/2023 COMPR EHENS PAT METAB OLIC PANEL AST 23 U/L 10-30 normal Not Available [facility] [address] [address] [place], [address], 01/17/2023 02:49:33 01/17/2001/17/2023 COMPR EHENS PAT METAB OLIC PANEL ALT 31 U/L 6-29 high Not Available [facility] [address], [address], 01/17/2023 02:49:33 01/17/2001/17/2023 HEMOG LOBIN A1C hemoglobin A1C 5.7 %_of_ total _HGB <5.7 high For somejames ne witho ut known diabe tian, a hemog lobin A1c value betwe en 5.7% and 6.4% is consi stent with predi abete s and shoul d be confi rmed with a follo w-up test. For someo ne with known diabe tian, a value <7% indic ates that their diabe tian is well contr olled . A1c targe ts shoul d be indiv idual ized based on durat ion of diabe tian, age, comor bid condi tions , and other consi derat ions. This assay resul t is consi stent with an incre ased risk of diabe tian. Curre ntly, no conse nsus exist s regar britt use of hemog lobin A1c for diagn osis of diabe tian for child shaji. Not Available [facility] [address] [address] [place], [address], 01/17/2023 02:49:34 01/17/2001/17/2023 CBC (INCL UDES DIFF/ PLT) white blood cell count 5.4 thous and/u L 3.8-10 .8 normal Not Available [facility] [address] [place], [address], 01/17/2023 02:49:34 01/17/2001/17/2023 CBC (INCL UDES DIFF/ PLT) red blood cell count 4.58 stacy on/uL 3.80-5 .10 normal Not Available [address], [address], 01/17/2023 02:49:34 01/17/20 23 01/17/2023 CBC (INCL UDES DIFF/ PLT) hemoglobin 13.6 g/dL 11.7-1 5.5 normal Not Available [address], [address], 01/17/2023 02:49:34 01/17/20 23 01/17/2023 CBC (INCL UDES DIFF/ PLT) hematocrit 41.3 % 35.0-4 5.0 normal Not Available [address], [address], 01/17/2023 02:49:34 01/17/20 23 01/17/2023 CBC (INCL UDES DIFF/ PLT) MCV 90.2 fL 80.0-1 00.0 normal Not Available [address], [address], 01/17/2023 02:49:34 01/17/20 23 01/17/2023 CBC (INCL UDES DIFF/ PLT) MCH 29.7 pg 27.0-3 3.0 normal Not Available [address], [address], 01/17/2023 02:49:34 01/17/20 23 01/17/2023 CBC (INCL UDES DIFF/ PLT) MCHC 32.9 g/dL 32.0-3 6.0 normal Not Available [facility] [address], [address], 01/17/2023 02:49:34 01/17/20 23 01/17/2023 CBC (INCL UDES DIFF/ PLT) RDW 12.0 % 11.0-1 5.0 normal Not Available [facility] - [address], [address], 01/17/2023 02:49:34 01/17/2001/17/2023 CBC (INCL UDES DIFF/ PLT) platelet count 190 thous and/u L 140-40 0 normal Not Available [address], [address], 01/17/2023 02:49:34 01/17/20 23 01/17/2023 CBC (INCL UDES DIFF/ PLT) MPV 12.5 fL 7.5-12 .5 normal Not Available [facility] [address], [address], 01/17/2023 02:49:34 01/17/20 23 01/17/2023 CBC (INCL UDES DIFF/ PLT) absolute neutrophils 2149 cells /uL 1500-7 800 normal Not Available [address], [address], 01/17/2023 02:49:34 01/17/20 23 01/17/2023 CBC (INCL UDES DIFF/ PLT) absolute lymphocytes 2630 cells /uL 850-39 00 normal Not Available [address], [address], 01/17/2023 02:49:34 01/17/2001/17/2023 CBC (INCL UDES DIFF/ PLT) absolute monocytes 421 cells /uL 200-95 0 normal Not Available [address], [address], 01/17/2023 02:49:34 01/17/20 23 01/17/2023 CBC (INCL UDES DIFF/ PLT) absolute eosinophils 167 cells /uL 15-500 normal Not Available [address], [address], 01/17/2023 02:49:34 01/17/20 23 01/17/2023 CBC (INCL UDES DIFF/ PLT) absolute basophils 32 cells /uL 0-200 normal Not Available [address], [address], 01/17/2023 02:49:34 01/17/20 23 01/17/2023 CBC (INCL UDES DIFF/ PLT) neutrophils 39.8 % normal Not Available [address], [address], 01/17/2023 02:49:34 01/17/20 23 01/17/2023 CBC (INCL UDES DIFF/ PLT) lymphocytes 48.7 % normal Not Available [address], [address], 01/17/2023 02:49:34 01/17/20 23 01/17/2023 CBC (INCL UDES DIFF/ PLT) monocytes 7.8 % normal Not Available [address], [address], 01/17/2023 02:49:34 01/17/20 23 01/17/2023 CBC (INCL UDES DIFF/ PLT) eosinophils 3.1 % normal Not Available [address], [address], 01/17/2023 02:49:34 01/17/20 23 01/17/2023 CBC (INCL UDES DIFF/ PLT) basophils 0.6 % normal Not Available [address], [address], 01/17/2023 02:49:34 08/21/19 22 08/14/2021 US, pelvi s No observ ation record ed. [id number] [facility] [place] [address], [place], [address], 07/23/2022 20:19:45 Result Notes None recorded. Problems Name Problem SNOMED Code Status Onset Date Resolution Date Notes Provider Name and Address Organization Details Recorded Time Acute bronchitis 58674914 Active 2021 Not Available [facility] 3 20:19:05 Diabetes mellitus screening Active 2021 Not Available [facility] 3 20:19:05 Screening mammography Active 2021 Not Available [facility] 3 20:19:05 Long-term drug therapy Active 2021 Not Available [facility] 3 20:19:06 Adult health examination Active 2021 Not Available [facility] 3 20:19:06 Low back pain 778027197 Active 2021 Not Available [facility] 3 20:19:06 Persistent cough 878923893 Active 2021 Not Available [facility] 3 20:19:06 Hypothyroidis m 38522468 Active 2021 ZAK Herrera, [facility] [employer] [facility] 3 12:16:05 Family history of breast cancer 425113484 Active 2021 Not Available [facility] 3 20:19:06 Postviral cough 795184460 Active 2021 Not Available [facility] 3 20:19:06 Cough 42776199 Active 2021 Not Available [facility] 3 20:19:06 Hyperlipidemi a 22601233 Active 2021 ZAK Herrera, [facility] [employer] [facility] 3 12:16:02 Gynecologic examination Active 2021 Not Available [facility] 3 20:19:06 COVID-19 050026472 Active 2021 Not Available [facility] 3 20:19:06 Impaired glucose tolerance 4883759 Active 2021 Not Available [facility] 3 20:19:07 Notes:COVID-19 pos 04/20/21 Some problems listed in Document: #[id number] could not be added to this patient's chart. Please review this document and add these problems to the patient's chart manually as needed. Problem Notes None recorded. Procedures Surgical History Date Name Laterality Status Provider Name and Address Organization Details Recorded Time 6 Appendectomy completed Not Available [facility] 023 20:18:43 Imaging Results Imaging Date Name Status LastModified by Organiz ation Details LastModified Time 08/14/2021 US, pelvis completed [id number] [facility] [place] [address], [place], [address], 07/23/2022 20:19:45 Procedure Notes None recorded. Medical Equipment None Reported. Allergies No known drug allergies Medications Name Sig Start Date Stop Date Status Note LastModified by Organization Details LastModified Time cyclobenzap rine 10 mg tablet 08/02 completed Not Available Not Available Not Available ketoconazol e 2 % shampoo active Not Available Not Available Not Available azithromyci n 250 mg tablet TAKE 2 TABLETS (500 MG) BY ORAL ROUTE ONCE DAILY FOR 1 DAY THEN 1 TABLET (250 MG) BY ORAL ROUTE ONCE DAILY FOR 4 DAYS 06/21 completed Not Available Not Available Not Available fluconazole 150 mg tablet Take 1 tablet every day by oral route as directed for 1 day. 12/23 completed Not Available Not Available Not Available benzonatate 200 mg capsule active Not Available Not Available Not Available meloxicam 15 mg tablet 08/02 completed Not Available Not Available Not Available Medrol (Marty) 4 mg tablets in a dose pack use as directed 01/23 completed Not Available Not Available Not Available prednisone 20 mg tablet 04/23 completed Not Available Not Available Not Available doxycycline hyclate 50 mg capsule 01/23 completed Not Available Not Available Not Available pimecrolimu s 1 % topical cream active Not Available Not Available Not Available Zofran 4 mg tablet Take 1 tablet as needed by oral route. 05/11 completed Not Available Not Available Not Available Johanna 180 mg tablet Take 1 tablet every day by oral route. 2021 active Not Available Not Available Not Avai lable benzonatate 100 mg capsule 01/23 completed Not Available Not Available Not Available levothyroxi ne 50 mcg tablet Take 1 tablet every day by oral route in the morning. 01/27 completed Not Available Not Available Not Available erythromyci n 5 mg/gram (0.5 %) eye ointment 02/24 completed Not Available Not Available Not Available oseltamivir 75 mg capsule 01/23 completed Not Available Not Available Not Available montelukast 10 mg tablet active Not Available Not Available Not Available hydroxyzine HCl 25 mg tablet 08/02 completed Not Available Not Available Not Available mupirocin 2 % topical ointment 02/24 completed Not Available Not Available Not Available ibuprofen 600 mg tablet Take 1 tablet 3 times a day by oral route as needed. 08/02 completed Not Available Not Available Not Available hydrocodone 10 mg-chlorphe niramine 8 mg/5 mL oral susp extend.rel 12hr Take 5 mL every 12 hours by oral route as directed. 01/23 completed Not Available Not Available Not Available albuterol sulfate HFA 90 mcg/actuati on aerosol inhaler active Not Available Not Available Not Available hydrocortis one 2.5 % topical ointment 08/02 completed Not Available Not Available Not Available ondansetron 4 mg disintegrat ing tablet 02/24 completed Not Available Not Available Not Available doxycycline hyclate 100 mg tablet Take 1 tablet twice a day by oral route. 01/23 completed Not Available Not Available Not Available naproxen 500 mg tablet Take 1 tablet twice a day by oral route as needed. 01/27 completed Not Available Not Available Not Available progesteron e micronized 100 mg capsule 01/27 completed Not Available Not Available Not Available amoxicillin 875 mg-potassiu m clavulanate 125 mg tablet Take 1 tablet every 12 hours by oral route. 08/02 completed Not Available Not Available Not Available tobramycin 0.3 %-dexametha sone 0.1 % eye drops,suspe nsion 08/02 completed Not Available Not Available Not Available cyclobenzap rine 5 mg tablet active Not Available Not Available Not Available rosuvastati n 10 mg tablet Take 1 tablet every day by oral route. 2022 active Not Available Not Available Not Avai lable fluocinolon e 0.01 % scalp oil and shower cap active Not Available Not Available Not Available Virtussin AC 10 mg-100 mg/5 mL oral liquid 02/24 completed Not Available Not Available Not Available Paxlovid 300 mg (150 mg x 2)-100 mg tablets in a dose pack 01/23 completed Not Available Not Available Not Available Vitals Date Recorded Body mass index (BMI) Body height Oxygen saturation Oxygen saturation in Arterial blood by Pulse oximetry Heart rate Respiratory rate Body temperature Body weight Systolic blood pressure Diastolic blood pressure Provider Name and Address Organization Details Last Updated DateTime 2 43 kg/m2 165.1 cm 96 % 96 % 85 /min 16 /min 96.7 [degF] 715703. 55 g 110 mm[Hg] 78 mm[Hg] Not Available [facility] 3 20:18:48 Date Recorded Body mass index (BMI) Body height Oxygen saturation Oxygen saturation in Arterial blood by Pulse oximetry Heart rate Body temperature Body weight Systolic blood pressure Diastolic blood pressure Provider Name and Address Organization Details Last Updated DateTime 2 43.8 kg/m2 165.1 cm 99 % 99 % 70 /min 97.3 [degF] 851280. 79 g 122 mm[Hg] 70 mm[Hg] Not Available [facility] 3 20:18:48 Date Recorded Body height Provider Name an d Address Organization Details Last Updated DateTime 08/19/2021 165.1 cm Not Available [facility] 3 20:18:48 Date Recorded Body height Body temperature Body mass index (BMI) Body weight Respiratory rate Oxygen saturation Oxygen saturation in Arterial blood by Pulse oximetry Heart rate Systolic blood pressure Diastolic blood pressure Provider Name and Address Organization Details Last Updated DateTime 3 165.1 cm 98.5 [degF] 37.3 kg/m2 016366. 69 g 16 /min 98 % 98 % 77 /min 120 mm[Hg] 80 mm[Hg] ZAK Herrera [employer] 3 14:44:38 Date Recorded Systolic blood pressure Diastolic blood pressure Provider Name and Address Organization Details Last Updated DateTime 01/27/2023 106 mm[Hg] 80 mm[Hg] RICKEY Lewis [address] [facility], [facility] [address], [place], [address], [employer] 01/27/2023 15:07:10 Social History Question Answer Notes LastModified by [employer] Details LastModified Time Tobacco Smoking Status Never Smoker Not Available [facility] 07/23/2022 20:18:36 Do You Have An Advance Directive? No [id number] Information not available 07/23/2022 What Is Your Level Of Alcohol Consumption? None [id number] Information not available 07/23/2022 What Is Your Level Of Caffeine Consumption? Moderate [id number] Information not available 07/23/2022 In The 14 Days Before Symptom Onset, Have You Had Close Contact With A Laboratory-confirm ed COVID-19 While That Case Was Ill? No [id number] Information not available 07/23/2022 In The 14 Days Before Symptom Onset, Have You Had Close Contact With A Person Who Is Under Investigation For COVID-19 While That Person Was Ill? No [id number] Information not available 07/23/2022 What Type Of Diet Are You Following? REGULAR [id number] Information not available 07/23/2022 Have There Been Any Changes To Your Family Or Social Situation? No [id number] Information not available 07/23/2022 Are There Any Guns Present In Your Home? Yes [id number] Information not available 07/23/2022 What Is Your Relationship Status? [id number] Information not available 07/23/2022 Do You Use Your Seat Belt Or Car Seat Routinely? Yes [id number] Information not available 07/23/2022 Do You Have Smoke And Carbon Monoxide Detectors In Your Home? Yes [id number] 3000 Information not available 07/23/2022 Do You Use Any Illicit Or Recreational Drugs? No [id number].[id number] 1988 Information not available 07/23/2022 Do You Use Sunscreen Routinely? No [id number] 3435 Information not available 07/23/2022 Have You Recently Traveled Abroad? No [id number].[id number] 7223 Information not available 07/23/2022 Do You Have Any Dietary Restrictions? No MIGRATION.205381 1145 Information not available 07/23/2022 Do You Or Have You Ever Used Any Other Forms Of Tobacco Or Nicotine? No MIGRATION.[id number] 7045 Information not available 07/23/2022 Sex: Unknown Functional Status Question Answer Note LastModified by [employer] Details LastModified Time What is your exercise level? Occasional [id number] Information not available 07/23/2022 Mental Status None recorded. Family History Relationship Description Onset Age of this Age Resolved Age Notes LastModified by Organization Details LastModified Time Mother Malignant tumor of breast [id number] Not available 07/23/2022 20:18:44 Maternal Aunt Malignant tumor of breast [id number] Not available 07/23/2022 20:18:44 Maternal Aunt Malignant neoplasm of lung [id number] Not available 07/23/2022 20:18:44 Maternal Aunt Multiple sclerosis [id number] Not available 07/23/2022 20:18:44 Medical History Condition Response BACK / NECK PROBLEMS Y Gynecological History Statement/Question Response Date of Last Pap 08/02/2021 Obstetrics History GPAL:G 0 P 0 0 0 0 Immunizations Vaccine Type Date Status Note Provider Nam e and Address Organization Details Recorded Time Influenza, split virus, quadrivalent, PF 04/23/2020 completed Not Available [facility] 3 20:19:38 Influenza, split virus, quadrivalent, PF 02/24/2018 completed Not Available [facility] 3 20:19:38 Past Encounters Encounter ID Performer Location Encounter Start Date Encounter Closed Date Diagnosis/Indication Diagnosis SNOMED-CT Code Diagnosis ICD10 Code Diagnosis Note [id number] RICKEY Lewis [facility] [place] [address] [place] [address] 05/29/2021 00:00:00 06/24/2021 18:52:22 [id number] RICKEY Lewis [facility] [place] [address] [place] [address] 06/24/2021 00:00:00 06/24/2021 12:48:27 [id number] RICKEY Lewis [facility] Internal [facility] [place] [address] [place] [address] 08/19/2021 00:00:00 08/20/2021 09:37:01 [id number] Bruce Eid MD [facility] Internal [facility] [place] [address] [place] [address] 12/23/2021 00:00:00 01/22/2022 19:48:23 [id number] RICKEY Lewis [facility] Internal Med Christopher Lopez [address] [place] [address] 01/27/2023 14:28:26 01/27/2023 15:09:42 Adult health examination 139436445 Z00.01 well exam completed Hyperlipidemia 63030963 E78.5 Lipids note to goal: LDL 155, Trigs 161, HDL 38, Total 223. start rosuvastat in 10mg qhs. repeat lab in Apr. Impaired g lucose tolerance 7796753 R73.03 5.7% stable. monitoring diet/carbs and adding exercise Long-term drug therapy 902725656 Z79.899 CMP labs due in Apr Screening mammography 24 675546 Z12.31 mammogram due Health Concerns Section Related Observation LastModified by Organization Detai ls LastModified Time None Recorded Concern Status LastModified by Organization Details LastModified Time None Recorded Advance Directives Directive N: Payers Encounter Date Sequence Insurance Name Policy Number Policy Fatima Covered Member ID Fatima Member ID Guarantor Name 01/27/[address] [facility] [id number] Bhavani Langley [id number] Bhavani Langley Notes Date Note Type Note Provider Name and Address Organization Details Recorded Time 05/29/19 22 text/ht ml CoughReported bypatient.Quality:loose; non productive;harsh Severity:pain with cough(deep cough sometimes irritates her throat or gives her a headache); mild; about the same Duration:intermittent; subacute (3-8 weeks) Onset/Timing:gradual; Lingering from when she had COVID in the end of Nov. Context:non-smoker; history of bronchitis Modifying Factors:only taking coughing drops and pushing fluids Associated Symptoms:no fever; no chills; no chest pain; no heartburn; no vomiting; no edema; no agitation; no wheezing; no post nasal drip; no sputum production; no chest wall tenderness; no shortness of breath; no dyspnea at rest or exertion; no nasal discharge;throat clearing; fatigue Not Available [place] [facility] 06/24/2021 18:52:22 06/24/19 22 text/ht ml HyperlipidemiaReported bypatient.Duration:chronic Control:usually well controlled Current Therapy:currently taking: (rosuvastatin 10mg) Compliance:compliant; compliant with diet;does not exercise Complications:no coronary artery disease; no peripheral artery disease; no cardiovascular disease Not Available [facility] [employer] [facility] 06/24/2021 12:48:27 08/20/19 22 text/ht ml Back Pain - GeneralReported bypatient.Location:pain is not radiating (left lower back more so); lower back Quality:sharp;tightness Severity:improving;pain level 4/10;mild (1-4) Duration:constant; present for less than a month; still present Timing:better; actual date: (08/17/21) Context:prior back problems; the only thing she can think of is she has been walking. Thursday she walked 1.5 miles and that was the longest she did. Alleviating Factors:heat; stretching Aggravating Factors:nothing she knows of. Associated Symptoms:no fever; no weak limbs; no tingling; no numbness of the legs/feet; no incontinence; no shortness of breath Not Available [place] [employer] [facility] [employer] [facility] 08/20/2021 09:37:01 12/24/19 22 text/ht ml CoughReported bypatient.Quality:loose Severity:worsening;pain with cough; moderate Duration:intermittent Context:non-smoker Associated Symptoms:no fever; no chills; no nausea; no wheezing;post nasal drip;throat clearing;nasal discharge Not Available [place] [employer] [facility] [employer] [facility] 01/22/2022 19:48:23 01/28/20 23 text/ht ml HyperlipidemiaReported bypatient.Duration:chronic Control:usually well controlled Compliance:compliant; compliant with diet;does not exercise Complications:no coronary artery disease; no peripheral artery disease; no cardiovascular diseaseHypothyroidismReported bypatient.Quality:not changing Duration:constant Onset/Timing:still present Context/Risk:normal thyroid levels; no history of head or neck radiation during childhood; no history of thyroid disease; no history of hyperthyroidism; no excess iron exposure;history of hypothyroidism;female gender Exerciseno exercise Associated Symptoms:no cold intolerance; no heat intolerance; no weight loss; no weight gain; no double vision; no dry eyes; no hoarseness; no difficulty swallowing; no neck masses; no deepening of the voice; no fast heart rate; no increased blood pressure; no palpitations; no chest pain; no chest tightess or pressure; no constipation; no diarrhea; no vomiting; no decreased appetite; no loose stools; no irregular menstrual periods; no excessive sweating; no joint pain; no numbness; no tingling of the hands or feet; no dry skin; no tremor; no nervousness; no anxiety; no depression; no fatigue; no sleep difficulties; no skin changes; no hair changes Wellness RICKEY Lewis [address] [facility], [facility] [address], [place], [address], [place] [facility] 02/18/2023 20:51:07 OBGyn Episode No OBEpisode recorded.
--- OUTSIDE RECORDS SUMMARY | 2024-09-26 13:29 | XMS_ITS | Continuity of Care Document ---
Author Organization [facility] Address [address] [facility] [address] [place] [address] Phone Care Team Providers Care Fashion Intern Name Role Phone Jorge Luis Tellez MD Unavailable Unavailable Allergies, Adverse Reactions, Alerts Substance Reaction Status Criticality No Known Allergies Active No Inform ation Medications Medication Instructions Dosage Effective Dates (start - stop) Status Comments Elidel 1 % topical cream apply by topical route 2 times every day a thin layer to the affected area(s) ; rub in gently and completely 0.00 - Active Procedures Procedure Date Est (Level 4) OFFICE/OUTPATIENT VISIT No Est (Level 3) OFFICE/OUTPATIENT VISIT Ma New (Level 4) OFFICE/OUTPATIENT VISIT Ap Advance Directives Directive Yes / No Effective Date File Name No Information Encounters Encounter Description Practice Location Reason(s) For Visit Diagnoses Date Provider Providers Copied on Encounter Est (Level 4) OFFICE/OUTPAT IENT VISIT [facility], [address] [facility] [address], [place], [place], [id number], [place] tel:[phone] [facility] swelling (chief complaint) Body mass index (BMI) 40.0-44.9, adultAngioe kamilah, subsequent encounter 2 Geoff Kang. [address] , [place], [address], [place]. tel:[phone] Referring Provider: Iraida Blanchard, [address], [place], [address] . tel:[phone] Est (Level 3) OFFICE/OUTPAT IENT VISIT [facility], [address] [place] [address], [id number], tel:[phone] [facility] angioedema (chief complaint) Body mass index (BMI) 40.0-44.9, adultAngioe kamilah, subsequent encounter 0 - 2 Geoff Cheshil. [address], [place], [place], [facility], [place]. tel:[phone] Referring Provider: Iraida Blanchard, [address], [place], [address] . tel:[phone] New (Level 4) OFFICE/OUTPAT IENT VISIT [facility], [address] [place] [address], [id number], tel:[phone] [facility] angioedema (chief complaint) Body mass index (BMI) 40.0-44.9, adultAngioe kamilah, initial encounter 0 2 Geoff Cheshil. [address], [place], [address], [place]. tel:[phone] Referring Provider: Jennifer [address], [place], [address] . tel:[phone] Family History Family Member Type Diagnosis Age At Onset Problem No family history of Thyroid disorder Maternal aunt Problem Multiple sclerosis Problem No family history of Immunod eficiency disorder Problem No family history of Systemi c lupus erythematosus Maternal aunt Problem amyotrophic Lateral Scleros is (ALS) Problem No family history of Rheumat oid arthritis Problem No family history of Asthma Problem No family history of Allergi c rhinitis Payers Payer name Insurance type Covered republican ID Stacey dorsey(s) [facility] CI [id number] Social History Type Description Quantity Date Captured Comments Alcohol Use Details Unknown Caffeine Use Details Unknown Tobacco Use Status No Information Smoking Status No Information Sex Female Vital Signs Date / Time: Height Weight BMI Pulse Rate Blood Pressure Temperature Respiratory Rate Body Surface Area Head Circumference Head Circ. Percentile Wt./Nicholas. Percentile BMI percentile Pulse Ox Inhaled Ox 2:04 PM 65.00 in 114.759 kg (253.00 lbs) 42.1 0 kg/m eter (2) 87 /min 121/74 mm[Hg] 97.30 F 2.29 meter(2) 98 % Chief Complaint And Reason For Visit From encounter dated '03/31/2022 13:40'. swelling (chief complaint). Description: LV: 09/23/21Evette has angioedema. She presents today for follow up.Jacqueline is on Johanna 180 mg BID, cetirizine (zyrtec) 20 mg, pepcid 20 mg BID. She has had some episodes of angioedema (perhaps a few times per month) - she doubles johanna with the prodrome of tingling of the lips, and this aborts or shortens the episode of swelling. She has the sensation of continued swelling of the right upper lip - this continued despite great improvement in episodes as above.She never started Dupixent.Data09/10/21Abs Eos 97CRP 7.5 (wnl)C4 45 (wnl)ESR 30 (H)ANUJA by IFA, RF, and anti-CCP all negative Reason For Referral Reason For Referral No Information History Of Present Illness Encounter Date Complaint History Of Prese nt Illness swelling LV: 09/23/21Evette sims s angioedema. She presents today for follow up.Jacqueline is on Johanna 180 mg BID, cetirizine (zyrtec) 20 mg, pepcid 20 mg BID. She has had some episodes of angioedema (perhaps a few times per month) - she doubles johanna with the prodrome of tingling of the lips, and this aborts or shortens the episode of swelling. She has the sensation of continued swelling of the right upper lip - this continued despite great improvement in episodes as above.She never started Dupixent.Data09/10/21Abs Eos 97CRP 7.5 (wnl)C4 45 (wnl)ESR 30 (H)ANUJA by IFA, RF, and anti-CCP all negative angioedema LV: 08/26/21She sims s angioedema. She presents today for follow up.Jacqueline is on Johanna 180 mg BID, cetirizine (zyrtec) 20 mg, pepcid 20 mg BID. She has not had a large flare of angioedema. A few days ago, she had the prodrome of tingling in her lips, but no angioedema developed. She never started Dupixent per a different office (?indication - atopic derm?). She requests Elidel refill today. Data09/10/21Abs Eos 97CRP 7.5 (wnl)C4 45 (wnl)ESR 30 (H)ANUJA by IFA, RF, and anti-CCP all negative angioedema She has had epis odes of swelling for > 3-4 years. She has had lip and cheek swelling. She has lip swelling nearly daily. She does not report any episodes with raised welts. She does not have episodes of unexplained abdominal pain. No episodes that have impacted her breathing or swallowing. She does report occasional dry mouth. She has not noticed any physical factors like pressure, temperature, or vibration. She is on pepcid 20 mg BID, fexofenadine (johanna) 180 mg daily, cetirizine (zyrtec) 20 mg BID, and loratadine (claritin) 10 mg daily. She is on Elidel 1% cream used BID as well.She is followed by Iraida Blanchard DO ([facility]), with last visit (per available records) on 05/06/21. She had a biopsy of her lip (which was swollen at the time) about 1 year ago, with findings suggestive of urticaria (not available for review today). She will be starting Dupixent in the next few weeks per another physician (patient is uncertain who). Her dad had severe hives when younger, which actually resulted in his discharge from the . No history of angioedema in the family. 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 [employer]Environmental HistoryLives in a house w/ central air/forced heat, w/o evidence of mold/water damageFlooring in Bedroom: carpetPets: none[-]Dust Mite Covers on Mattress/PillowsDataI reviewed outside records available in the EMR Functional Status Date Functional Assessmen t No Information Instructions Date Instruction Additional Infor mation Giving encouragement to exercise Related to Body mass index [BMI] 40.0-44.9, adult Giving encouragement to exercise Related to Body mass index [BMI] 40.0-44.9, adult Giving encouragement to exercise Related to Body mass index [BMI] 40.0-44.9, adult - stop Claritin- inc rease Johanna 180 mg to twice daily- continue Zyrtec 20 mg twice daily and Pepcid 20 mg twice daily- get labs at [facility]- Follow up in 4 weeks Related to Angioedema, initial encounter Giving encouragement to exercise Related to Body mass index [BMI] 40.0-44.9, adult Assessments Type Assessment Date assessment Body mass index (BMI) 40.0-44.9, adult assessment Angioedema, subsequent encounter Patient Care Teams Name Effective Dates (start - stop) Status Members No Information
--- OUTSIDE RECORDS SUMMARY | 2024-09-26 13:29 | XMS_ITS | Data Portability ---
Author Organization [facility] [place] Address [address] [place] [address] [place] [address] Assessment Encounter Date Assessment Date Assessment LastModified by Organization Details LastModified Time 08/01/2021 08/01/2021 Annual gynecological exam performed. Patient will come back in a year unless there are new symptoms. Not available 08/01/2021 12:30:47 Plan of Treatment Reminders Order Date Submit Date Provider Last Modified By Organization Details Last Modified Time Details Appointments None recorded. Lab ca 125, serum 2021 [facility] (Lab), [address], [place], [address], 03:02:55 hormone panel, serum or plasma 2021 022 [facility] (Lab), [address], [place], [address], 03:02:55 test, urine 2021 022 [place], [place], [address], 11:29:06 hormone panel, serum or plasma 2021 022 [facility] (Lab), [address], [place], [address], 06:30:01 Referral None recorded. Procedures None recorded. Surgeries None recorded. Imaging US, transvagina l 2021 022 [email or web address] [address], [address], [place], [address], 19:01:09 MAMMO, screening, digital, bilateral 2021 022 Not available 15:47:22 Medication Orders None recorded. Patient TargetsNo targets recorded. Patient InstructionsNo instructions recorded. Reason for Referral None Reported. Results Created Date Observation Date Name Description Value Unit Range Abnormal Flag Note LastModifiedBy Organization Detail LastModifiedTime 08/02/1908/01/2021 FSH, LH, ESTRA DIOL estradiol 16.4 pg/mL This assay was perfo rmed using [employer] n reage nts and test kits. Value s obtai loy with other assay metho ds or kits canno t be used inter [facility] . Femal e Estra diol Range s: Folli cular phase 12.4- 233 pg/mL Ovula tion phase 41.0- 398 pg/mL Lutea l phase 22.3- 341 pg/mL Postm enopa usal< 5-138 pg/mL Healt hy Pregn ant Women 1st Trime ster1 54-32 43 pg/mL 2nd Trime ster1 561-2 1280 pg/mL 3rd Trime ster8 525-> 83786 pg/mL Not Available [facility] (Lab) [address], [place], [address], 08/02/2021 06:30:01 08/02/1908/01/2021 FSH, LH, ESTRA DIOL FSH 36.9 mIU/m L This assay was perfo rmed using [employer] reage nts and test kits. Value s obtai loy with other assay metho ds or kits canno t be used inter [facility] e[facility] . Femal es Folli cular : 3.5-1 2.5 mIU/m L Ovula tion: 4.7-2 1.5 mIU/m L Lutea l: 1.7-7 .7 mIU/m L Postm enopa use: 25.8- 134.8 mIU/m L Not Available [facility] (Lab) [address], [place], [address], 08/02/2021 06:30:01 08/02/19 22 08/01/2021 FSH, LH, ESTRA DIOL LH 25.1 mIU/m L This assay was perfo rmed using [employer] reage nts and test kits. Value s obtai loy with other assay metho ds or kits canno t be used inter [facility] . 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 FINAL DIAGN OSIS: Negat minesh for Intra epith elial Cece vega or Harry serna (NIL) . Funga l organ isms morph ologi krystal consi stent with Akila da spp. Elect kendall pearson millie d by Dhruv Mims, CT on 2021 at 8:59 AM ----- ----- ----- ----- ----- ----- ----- ----- ----- ----- ----- ----- ----- ----- ----- ----- ----- ---- HPV RESUL TS: HPV mRNA E6/E7 : No HPV mRNA Detec steve NOTE: This high risk HPV mRNA assay detec ts fourt een high- risk HPV types (16, 18, 31, 33, 35, 39, 45, 51, 52, 56, 58, 59, 66, 68) witho ut diffe renti ation . COMME NT: Note: This speci men was revie wed by a Cytot echno logis t and/o r Patho logis t (as indic ated in this repor t) after evalu ation using the Thinp rep Imagi ng Syste m. CLINI BEBETO INFOR MATIO N: Menst rual Statu s: LMP (if appli cable ): Clini bebeto Histo ry/Pr eviou s Pap: Type of Neopl ty (if appli cable ): Signi fican t Clini bebeto Findi ngs: Other Histo ry: Hormo kaitlyn (if appli cable ): PAP EDUCA MARJORIE L NOTE: The Pap Test is a scree vinnie test with an inher ent false negat minesh rate. Liqui d-bas ed sampl ing may decre ase, but will not elimi karthikeyan, false negat minesh resul ts. A negat minesh resul t does not precl ude the prese nce and/o r devel opmen t of disea se, since the prese nce of abnor mal cells in the sampl e depen ds on the locat ion of the lesio n and sampl ing techn ique. Emilia nued regul ar scree vinnie is the best metho d of cance r preve ntion . If repor steve cytol ogic findi ng do not corre late with physi bebeto and/o r histo rical findi ngs, furth er inves tigat ion is recom kat d, as adarshi krystal parrish nted. Not Available [facility] (Lab) [address], [place], [address], 08/09/2021 10:01:35 08/02/19 22 08/01/2021 INVIT REMIGIO ALBERTO RS PANEL abnormal status abnormal Not Available [facility] [address], [place], [address], 08/20/2021 14:03:01 09/03/19 22 09/02/2021 FSH, LH, ESTRA DIOL estradiol 13.3 pg/mL This assay was perfo rmed using [employer] reage nts and test kits. Value s obtai loy with other assay metho ds or kits canno t be used inter [facility] . Femal e Estra diol Range s: Folli cular phase 12.4- 233 pg/mL Ovula tion phase 41.0- 398 pg/mL Lutea l phase 22.3- 341 pg/mL Postm enopa usal< 5-138 pg/mL Healt hy Pregn ant Women 1st Trime ster1 54-32 43 pg/mL 2nd Trime ster1 561-2 1280 pg/mL 3rd Trime ster8 525-> 71582 pg/mL Not Available [facility] (Lab) [address], [place], [address], 09/03/2021 03:02:55 09/03/19 22 09/02/2021 FSH, LH, ESTRA DIOL FSH 34.1 mIU/m L This assay was perfo rmed using [employer] reage nts and test kits. Value s obtai loy with other assay metho ds or kits canno t be used inter [facility] . Femal es Folli cular : 3.5-1 2.5 mIU/m L Ovula tion: 4.7-2 1.5 mIU/m L Lutea l: 1.7-7 .7 mIU/m L Postm enopa use: 25.8- 134.8 mIU/m L Not Available [facility] (Lab) [address] [place], [address], 09/03/2021 03:02:55 09/03/19 22 09/02/2021 FSH, LH, ESTRA DIOL LH 25.1 mIU/m L This assay was perfo rmed using [employer] reage nts and test kits. Value s obtai loy with other assay metho ds or kits canno t be used inter [facility] e[facility] . Femal es Mid-F ollic ular: 2.4-1 2.6 mIU/m L Mid-C ycle: 14.0- 95.6 mIU/m L Mid-L uteal : 1.0-1 1.4 mIU/m L Postm enopa use: 7.7-5 8.5 mIU/m L Not Available [facility] (Lab) [address], [place], [address], 09/03/2021 03:02:55 09/03/19 22 09/02/2021 CA 125 Ca 125 13.0 units /mL 0.0-35 .0 This assay was perfo rmed using [employer] reage nts and test kits. Value s obtai loy with other assay metho ds or kits canno t be used inter [facility] . 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 -No endom etria l hyper plasi a or malig nant tumor ident ified . Elect kendall bunch by Francisca Del Rosario MD on 2021 at 1:52 PM ----- ----- ----- ----- ----- ----- ----- ----- ----- ----- ----- ----- ----- ----- ----- ----- ----- ---- CLINI BEBETO INFOR MATIO N: NOT PROVI DED MICRO SCOPI C DESCR IPTIO N: A micro scopi c exami natio n was perfo rmed. GROSS DESCR IPTIO N: A. Endom etriu m. The speci men is label ed with the patie nt's name, braxton guadarrama cs and EMB . Recei anne in forma jovita is a 2.1 x 0.6 x 0.[address] [place] tissu e and mucus . The entir e speci men is submi tted in one casse tte. Gross ed by Janie Durán on Not Available [facility] (Lab) [address], [place], [address], 09/03/2021 14:54:46 09/03/19 22 09/02/2021 pregn andrew test, urine HCG negati ve Not Available [place] [address], [place], [address], 09/02/2021 11:28:53 08/15/19 22 08/14/2021 US, trans vagin al No observ ation record ed. [email or web address] [place] [address], [place], [address], 08/14/2021 18:19:23 08/15/19 22 08/14/2021 US, trans vagin al No observ ation record ed. [address], [place], [address], 08/20/2021 17:55:45 Result Notes None recorded. Procedures Surgical History Date Name Laterality Status Provider Name and Address Organization Details Recorded Time 09/03/19 22 Endometrial Biopsy completed Cielo Guzmán [facility]- [address], [place], [address], [facility] 09/02/2021 11:49:02 08/02/19 22 Date of Last Pap Smear completed [facility] 09/02/2021 11:28:04 05/25/19 20 Date of Last Mammogram completed [facility] 08/01/2021 12:31:59 Appendectomy completed [facility] 08/01/2021 12:32:08 Imaging Results Imaging Date Name Status LastModified by Organization Details LastModified Time 08/14/2021 US, transvaginal completed [email or web address] [place] [address], [place], [address], 08/14/2021 18:19:23 08/14/2021 US, transvaginal completed [facility] [address], [place], [address], 08/20/2021 17:55:45 Procedure Notes None recorded. Medical Equipment None Reported. Allergies No known drug allergies Medications Name Sig Start Date Stop Date Status Note LastModified by Organization Details LastModified Time azithromycin 250 mg tablet 08/01 completed Not Available Not Available Not Available fluconazole 150 mg tablet Take 1 tablet every day by oral route for 1 day. 09/02 completed Not Available Not Available Not Available Claritin 10 mg tablet 09/02 completed Not Available Not Available Not Available doxycycline hyclate 50 mg capsule active Not Available Not Available N ot Available pimecrolimus 1 % topical cream active Not Available Not Available Not Available Zyrtec 5 mg tablet 09/02 completed Not Available Not Available Not Available Johanna 180 mg tablet active Not Available Not Available No t Available levothyroxin e 50 mcg tablet active Not Available Not Available Not Available hydrocodone 10 mg-chlorphen iramine 8 mg/5 mL oral susp extend.rel 12hr 08/01 completed Not Available Not Available Not Available naproxen 500 mg tablet active Not Available Not Available No t Available progesterone micronized 100 mg capsule Take 1 capsule daily active Not Available Not Available No t Available cyclobenzapr ine 5 mg tablet active Not Available Not Available Not Available rosuvastatin 10 mg tablet active Not Available Not Available Not Available Pepcid AC active Not Available Not Scarlet ilable Not Available Doxycycline 08/01 completed Not Available Not Available Not Available Dupixent 300 mg/2 mL subcutaneous pen injector active Not Available Not Available Not Available Vitals Date Recorded Body height Body mass index (BMI) Body weight Systolic blood pressure Diastolic blood pressure Provider Name and Address Organization Details Last Updated DateTime 08/01/2021 165.74 cm 41.6 kg/m2 534915.2 8 g 118 mm[Hg] 78 mm[Hg] [facility] 2 12:31:47 Date Recorded Body height Body mass index (BMI) Body weight Systolic blood pressure Diastolic blood pressure Provider Name and Address Organization Details Last Updated DateTime 09/02/2021 165.74 cm 41.6 kg/m2 891141.2 8 g 122 mm[Hg] 74 mm[Hg] [facility] 2 11:26:42 Social History Question Answer Notes LastModified by Organizat ion Details LastModified Time Do You Have An Advance Directive? No Information n ot available 08/01/2021 What Is Your Level Of Alcohol Consumption? None Information not available 08/01/2021 Are You Blind Or Do You Have Difficulty Seeing? No Information n ot available 08/01/2021 What Is Your Level Of Caffeine Consumption? Moderate Information not available 08/01/2021 How Much Tobacco Do You Chew? None Information not available 08/01/2021 In The 14 Days Before Symptom Onset, Have You Had Close Contact With A Laboratory-confirm ed COVID-19 While That Case Was Ill? No Information n ot available 08/01/2021 In The 14 Days Before Symptom Onset, Have You Had Close Contact With A Person Who Is Under Investigation For COVID-19 While That Person Was Ill? No Information not available 08/01/2021 Have You Been To An Area Known To Be High Risk For COVID-19? No Information not available 08/01/2021 Are You Deaf Or Do You Have Serious Difficulty Hearing? No Information not available 08/01/2021 What Type Of Diet Are You Following? REGULAR Information n ot available 08/01/2021 What Is The Highest Grade Or Level Of School You Have Completed Or The Highest Degree You Have Received? 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 Yes Information not available 08/01/2021 Do You Use Protection During Sex? No Information not available 08/01/2021 Do You Use Your Seat Belt Or Car Seat Routinely? Yes Information not available 08/01/2021 Do You Have Smoke And Carbon Monoxide Detectors In Your Home? Yes Information not available 08/01/2021 How Much Tobacco Do You Smoke? No Information not available 08/01/2021 Do You Feel Stressed (tense, Restless, Nervous, Or Anxious, Or Unable To Sleep At Night)? [id number] Information not available 08/01/2021 Do You Use Any Illicit Or Recreational Drugs? No Information not available 08/01/2021 Do You Use Sunscreen Routinely? No Information not available 08/01/2021 Have You Used IV Drugs? No Information not available 08/01/2021 Sex: Unknown Functional Status Question Answer Note LastModified by Organizat ion Details LastModified Time Do you have difficulty walking or climbing stairs? No Information not available 09/02/2021 Are you able to walk? YESWOREST Information not available 08/01/2021 Are you able to care for yourself? Yes Information not available 09/02/2021 Do you have difficulty dressing or bathing? No Information not available 09/02/2021 What is your exercise level? Moderate Information not available 08/01/2021 Mental Status None recorded. Family History Relationship Description Onset Age of this Age Resolved Age Notes LastModified by Organization Details LastModified Time Maternal Aunt Multiple sclerosis Not available 2021 12:31:50 Maternal Aunt Malignant tumor of breast Not available 2021 12:31:50 Mother Malignant tumor of breast Not available 2021 12:31:50 Medical History Condition Response Dermatologic Disorders Y Infertility Y High Cholesterol Y Gynecological History Statement/Question Response Abnormal Pap N Date of Last Mammogram 05/25/2019 On BCP's at Conception? N N STIs/STDs N Was last menstrual period normal Y HPV Vaccine N Current Control Method None Sexually Active? Y Age of first menstrual cycle 14 Date of Last Pap Smear 08/01/2021 Sexual Problems? N LMP Unknown N Obstetrics History GPAL:G 0 P 0 0 0 0 Type Value Living 0 Total 0 Past Encounters Encounter ID Performer Location Encounter Start Date Encounter Closed Date Diagnosis/Indication Diagnosis SNOMED-CT Code Diagnosis ICD10 Code Diagnosis Note [id number] Cielo Guzmán , [facility] [address] [address] 08/01/2021 12:01:31 08/02/2021 15:39:19 Gynecologic examination 94261912 Z01.419 Suggested Calcium with Vitamin D 1200-1500m g daily. Patient advised to get an annual flu shot in the fall and she could obtain at [facility] or [facility] take care clinic. Also to obtain TDap vaccinatio n if you have not had one in the last 10 years. Recommend yearly mammograms . Encouraged monthly self breast exams. Encourage safe sexual practices, to use condoms and limit partners if not already in a monogamous relationsh ip. Engage in daily exercise of low impact aerobic exercise 45-60 minutes 4-5 times weekly. Avoid tobacco and illicit drugs as well as using moderation with alcohol intake less than 1-2 8 oz beverages daily. This lifestyle behavior pattern will lead to less health conditions and longer life span. If BMI greater than 25 weight watchers or dietary consult advised. All questions have been answered. Patient appears to understand informatio n, but if you have any questions please call or respond to this email. [facility] acceptedST D screen declined needMammo ordered Screening mammography 24 701666 Z12.31 Primary amenorrhea 09250 5004 N91.0 We will wait for these results to return.If they are not in menopause ranges will need to complete a TVUS. [id number] Diogenes Rooney MD [place] [address] [address] 08/14/2021 14:56:50 08/14/2021 15:37:11 Amenorrhea 59059233 N91.2 [id number] [facility] [address] [address] 09/02/2021 11:07:42 09/02/2021 11:56:17 Screening procedure 61778421 Z13.9 Secondary amenorrhea 156 100284 N91.1 EMBx performed (see procedure notes)Repe at labs to ensure menopause. Will await pathology and decide next steps in plan of care.TVUS results reviewed. Time spent in visit is a total of 15 mins with at least 50% of visit consisting of counseling and review of plan of care NOT including time spent on procedure today. 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 All staff wore face coverings during this encounter, as well as provided additional cleaning and sanitizing of all surfaces, including countertop s, pens, chairs, door handles, light switches, etc, prior to and following the patient s visit. Cyst of ovary 78474657 N 83.209 Health Concerns Section Related Observation LastModified by Organization Detai ls LastModified Time None Recorded Concern Status LastModified by Organization Details LastModified Time None Recorded Advance Directives Directive N: Payers Encounter Date Sequence Insurance Name Policy Number Policy Fatima Covered Member ID Fatima Member ID Guarantor Name 08/01/2021 1 [facility] [id number] Bhavani Vega Fane [id number] Bhavani Langley 08/14/2021 1 [facility] [id number] Bhavani N Fane [id number] Bhavani Grafe 09/02/2021 1 [facility] [id number] Bhavani N Fane [id number] Bhavani Langley Notes Date Note Type Note Provider Name and Address Organization Details Recorded Time 08/01/2021 text/html Annual GYNReport ed bypatient.Menstrual cycle:Voices a Hx of primary amenorrhea. Has seen endocrinology in the past. This has been at least 5yrs ago since she last checked in with them. 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 She is unable to recall everything that was completed or discussed in detail. [place] very confused by it all & took a break. She thought she remembered them telling her she had POI (Premature ovarian insufficiency). Knows an FSH/LH was completed but does not think that both numbers were high. Urinary symptoms:No hematuria; No incontinence Vulva:No genital lesion Vagina:Normal vaginal discharge Breast:No breast pain; No breast lump; No nipple discharge Current Contraception:Monog amous relationship; control not practiced (Hx of infertility) Sexual complaints:No sexual complaints; No pain during intercourse; Normal libido Menopausal Symptoms:No menopausal symptoms; Normal vaginal lubrication Psychological symptoms:No depression; No anxiety; No PMDD Preventive measures:Encourage self breast examination; Encourage regular exercise; Encourage no tobacco use; Encourage regular mammograms starting age 40; Followed with Q3 year pap smear and high risk HPV typing; Needs to schedule mammogram Cielo Guzmán [facility]- [address], [place], [address], [facility] 08/02/2021 13:58:37 09/02/2021 text/html Here to review T VUS & EMBx. IFEANYI [facility]- [address], [place], [address], [facility] 09/02/2021 11:50:11 OBGyn Episode No OBEpisode recorded.
== END 2024-09-26 12:58 | disposition home or self-care (01) ==
LOC: CHSIMG 13:00
PROVIDERS: PCP Physician Assistant; Visit Provider Physician Assistant
DX: Z12.31 Encounter for screening mammogram for malignant neoplasm of breast (principal)
CPT/HCPCS: 77063; 77067

== ENCOUNTER 2025-02-19 11:20 | Emergency (ER) | payer OTHER, SELFPAY ==
[2025-02-19] VITALS (30 sets, daily range): BP systolic 114–164; BP diastolic 73–93; PULSE 72–90; RESP 9–24; TEMP 36.6; O2SAT 96–100
--- NOTE | ~2025-02-19 | XR_ITS ---
Examination: XR chest 2V Clinical History: chest pain Comparison: 11/13/2020 Technique: PA and Lateral Findings: Cardiomediastinal silhouette normal size and configuration. Lungs clear. No acute bony abnormality. IMPRESSION: 1. No acute cardiopulmonary findings. Reviewed, dictated and finalized at location R.
--- NOTE | 2025-02-19 11:26 | ECG_ITS ---
Test Date: 2025-02-19 11:28:38 Measurements Intervals [place] Rate: 86 P: 18 OR: 120 QRS: -13 QRSD: 83 T: 42 QT: 358 QTc: 430 Interpretive Statements SINUS RHYTHM No previous ECG available for comparison Electronically Signed On 02-19-2025 20:49:24 CDT by Jayme Samson D.O
[2025-02-19] MEDS: KETOROLAC 30 MG/ML VIAL (*BKC) IV PUSH (12:31)
[2025-02-19 12:32] LABS: Hematocrit 40.2 % (37.0-47.0); Hemoglobin 13.1 g/dL (12.0-15.0); Immature Granulocyte Percent A 0.3 % (0-0.5); Lymphocytes Absolute Auto 2.45 K/mm3 (0.9-3.2); Mean Corpuscular HGB Conc 32.6 g/dl (32-36); Mean Corpuscular Hemoglobin 30.3 pg (26-34); Mean Corpuscular Volume 93.1 fl (80-100); Nucleated Red Blood Cells Absolute Auto 0.000 K/mm3 (0.0-0.012); Nucleated Red Blood Cells Perc 0.0 % (0.0-0.2); Platelet Count Result 221 k/mm3 (150-375); Red Blood Count 4.32 M/mm3 (4.2-5.4); White Blood Count 6.8 K/mm3 (4.5-10.0)
[2025-02-19 12:44] LABS: INR 1.1; Prothrombin Time 14.0 Seconds (11.1-14.7)
[2025-02-19 12:45] LABS: Alanine Aminotransferase 41 U/L (6-35); Albumin Level 4.4 g/dL (3.5-5.1); Alkaline Phosphatase 49 U/L (38-126); Anion Gap 9 mmol/L (4-12); Aspartate Amino Transferase 36 U/L (14-36); Bilirubin,Total 0.9 mg/dL (0.2-1.3); Blood Urea Nitrogen 15 mg/dL (7-17); Calcium 9.1 mg/dL (8.4-10.2); Carbon Dioxide 24 mmol/L (22-30); Chloride 104 mmol/L (98-107); Estimated CRCL calculation 103 ml/min; Estimated Glomerular Filt Rate > 60; Glucose 125 mg/dL (65-110); Partial Thromboplastin Time 32.4 Seconds (22.3-36.8); Potassium 4.5 mmol/L (3.4-5.0); Sodium 137 mmol/L (137-145); Total Protein 8.0 g/dL (6.3-8.2)
[2025-02-19 13:00] LABS: Troponin I < 0.012 ng/mL (0.000-0.034)
--- NOTE | 2025-02-19 13:50 | ED.GENADULT ---
HPI - General Adult General Chief complaint: Unspecified Stated complaint: lightheaded Time Seen by Provider: 02/19/25 11:34 History of Present Illness HPI narrative: Patient is a 44-year-old female who presents the ER with reports of feeling lightheaded. Began only a hindu around 10:00 a.m.. She had some discomfort no left arm like she had leaned on her funny bone min she felt some chest pressure. That has since improved. She checked her washing her heart rate was 110 beats per minute. No nausea or vomiting. No fevers or chills or sweats. No productive cough. Related Data Allergies Allergy/AdvReac Type Severity Reaction Status Date / Time No Known Allergies Allergy Unverified 11/09/15 10:08 Review of Systems Review of Systems: All systems reviewed & are unremarkable except as noted in HPI and below Constitutional: Constitutional: Reports no additional constitutional complaints Cardiovascular: Cardiovascular: Reports no additional cardiovascular complaints Respiratory: Respiratory: Reports no additional respiratory complaints Gastrointestinal: Gastrointestinal: Reports no additional gastrointestinal complaints Musculoskeletal: Musculoskeletal: Reports no additional musculoskeletal complaints PMFSH Past Medical History Medical History Borderline diabetes Hyperlipidemia Social History Social History Smoking status: Never smoker Exam Narrative: GENERAL: Well-appearing, well-nourished, and in no acute distress. HEAD: Normocephalic, atraumatic. ENT: Mucous membranes moist. CHEST: Clear to auscultation. No respiratory distress. HEART: Regular rate and rhythm. Normal peripheral pulses. ABDOMEN: Soft, nontender, nondistended. EXTREMITIES: Normal range of motion. No edema. SKIN: Warm, dry, no rash. NEURO: Alert and oriented x3. PSYCH: Normal mood and affect. Course Course Emergency Course: Patient resting comfortably. No pain. Troponins negative x2. Appropriate for d/c, discussed return precautions. Vital Signs Vital signs: Vital Signs Temperature 98 F 02/19/25 11:23 Pulse Rate 84 02/19/25 11:23 Respiratory Rate 18 02/19/25 11:23 Blood Pressure 164/93 H 02/19/25 11:23 Pulse Oximetry 99 02/19/25 11:23 Oxygen Delivery Room Air 02/19/25 11:23 Temperature 98 F 09/28/25 11:23 Pulse Rate 81 02/19/25 14:27 Respiratory Rate 18 02/19/25 14:27 Blood Pressure 117/74 02/19/25 14:27 Pulse Oximetry 98 02/19/25 14:27 Oxygen Delivery Room Air 02/19/25 11:23 Medical Decision Making Vital Signs Vital Signs: Vital Signs Temperature 98 F 02/19/25 11:23 Pulse Rate 84 02/19/25 11:23 Respiratory Rate 18 02/19/25 11:23 Blood Pressure 164/93 H 02/19/25 11:23 Pulse Oximetry 99 02/19/25 11:23 Oxygen Delivery Room Air 02/19/25 11:23 Temperature 98 F 02/19/25 11:23 Pulse Rate 81 02/19/25 14:27 Respiratory Rate 18 02/19/25 14:27 Blood Pressure 117/74 02/19/25 14:27 Pulse Oximetry 98 02/19/25 14:27 Oxygen Delivery Room Air 02/19/25 11:23 Lab Data 02/19/25 12:26 02/19/25 12:26 Labs: Lab Results 02/19/25 02/19/25 Range/Units 12:26 15:31 WBC 6.8 (4.5-10.0) K/mm3 RBC 4.32 (4.2-5.4) M/mm3 Hgb 13.1 (12.0-15.0) g/dL Hct 40.2 (37.0-47.0) % MCV 93.1 (80-100) fl MCH 30.3 (26-34) pg MCHC 32.6 (32-36) g/dl RDW 12.9 (11.5-14.5) % Plt Count 221 (150-375) k/mm3 MPV 10.8 H (7.4-10.4) fl Immature Gran % (Auto) 0.3 (0-0.5) % Neut % (Auto) 55.4 (45.5-73.1) % Lymph % (Auto) 36.2 (18.3-44.2) % [place] % (Auto) 6.2 (2.6-8.5) % Eos % (Auto) 1.6 (0-4.4) % Baso % (Auto) 0.3 (0.2-1.2) % Lymph # (Auto) 2.45 (0.9-3.2) K/mm3 [place] # (Auto) 0.4 (0.1-0.6) K/mm3 Eos # (Auto) 0.1 (0-0.3) K/mm3 Baso # (Auto) 0.0 (0.0-0.1) K/mm3 Abs Immat Gran (auto) 0.02 (0.00-0.031) K/mm3 Absolute Neuts (auto) 3.7 (1.3-6.7) K/mm3 Absolute Nucleated RBC 0.000 (0.0-0.012) K/mm3 Nucleated RBC % 0.0 (0.0-0.2) % PT 14.0 (11.1-14.7) Seconds INR 1.1 APTT 32.4 (22.3-36.8) Seconds Sodium 137 (137-145) mmol/L Potassium 4.5 (3.4-5.0) mmol/L Chloride 104 (98-107) mmol/L Carbon Dioxide 24 (22-30) mmol/L Anion Gap 9 (4-12) mmol/L BUN 15 D (7-17) mg/dL Creatinine 0.76 (0.7-1.0) mg/dL Estim Creat Clear Calc 103 ml/min Estimated GFR > 60 (59 - ) Glucose 125 H (65-110) mg/dL Calcium 9.1 (8.4-10.2) mg/dL Total Bilirubin 0.9 (0.2-1.3) mg/dL AST 36 (14-36) U/L ALT 41 H (6-35) U/L Alkaline Phosphatase 49 (38-126) U/L Troponin I < 0.012 < 0.012 (0.000-0.034) ng/mL Total Protein 8.0 (6.3-8.2) g/dL Albumin 4.4 (3.5-5.1) g/dL Imaging Data Radiologist's impression: ITS Impressions Chest X-Ray 02/19/25 12:20 IMPRESSION: 1. No acute cardiopulmonary findings. ECG Data EKG #1: ECG completion date: 02/19/25 ECG completion time: 11:28 EKG Interpretation: normal rate (86), sinus rhythm, normal QRS, normal QT and NL axis Discharge Plan Discharge Clinical Impression: Chest pain Patient Disposition: Home Condition: Stable Instructions: Chest Pain (ED) Additional Instructions: Please return to the emergency department if you develop severe and persistent chest pain, difficulty breathing, dizziness, leg swelling or if you are coughing up blood as these can be signs of a medical emergency. Please call your doctor for a follow up appointment to determine the need for further testing. Patient Language: Libyan Follow-up/Referrals: Chris,RENATA Aponte [Primary Care Provider, Unknown] - 1 Week Quality HEART score for chest pain patients History: slightly suspicious ECG: normal Age: > 45 and < 65 years Risk factors: 1 or 2 risk factors Troponin: < or = to 1x normal limit Heart score: 2
--- NOTE | 2025-02-19 15:23 | ECG_ITS ---
Test Date: 2025-02-19 15:26:59 Measurements Intervals [place] Rate: 74 P: 33 NE: 129 QRS: 79 QRSD: 77 T: 38 QT: 382 QTc: 426 Interpretive Statements SINUS RHYTHM Compared to ECG 02/19/2025 11:28:38 No significant changes Electronically Signed On 02-19-2025 20:51:09 CDT by Jayme Samson D.O
[2025-02-19 16:01] LABS: Troponin I < 0.012 ng/mL (0.000-0.034)
== END 2025-02-19 17:35 | disposition home or self-care (01) ==
PROVIDERS: Emergency Provider Emergency Medicine; PCP Physician Assistant
DX: R07.9 Chest pain, unspecified (principal); E78.5 Hyperlipidemia, unspecified
CPT/HCPCS: 36415; 71046; 80053; 84484; 85025; 85610; 85730; 93005; 96374; 99284; J1885

== ENCOUNTER 2025-04-05 09:20 | Emergency (ER) | payer OTHER, SELFPAY ==
--- NOTE | 2025-04-05 09:28 | ED.GENADULT ---
HPI - General Adult General Chief complaint: Upper Respiratory Infection Stated complaint: Upper Respiratory Symptoms Source: patient Mode of arrival: ambulatory Limitations: no limitations History of Present Illness HPI narrative: Pt is a 44 y/o female presenting with c/o URI sx. Reports sx began yesterday with a dry, scratchy throat. Today, she also reports nasal congestion, rhinorrhea, post nasal drip. 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 No known exposure to STREP, COVID, FLU, PNA. No additional complaints. Related Data Home Medications ?Medication ?Instructions ?Recorded ?Confirmed ?Last Taken ?Type cetirizine 10 mg tablet (24Hour 10 mg PO DAILY 04/05/25 04/05/25 Unknown History Allergy) rosuvastatin 10 mg tablet 10 mg PO DAILY 04/05/25 04/05/25 Unknown History spironolactone 100 mg tablet 100 mg PO DAILY 04/05/25 04/05/25 Unknown History Allergies Allergy/AdvReac Type Severity Reaction Status Date / Time No Known Allergies Allergy Verified 04/05/25 09:24 Review of Systems Review of Systems: CONSTITUTIONAL: Denies body aches, fever, chills, or sweats. EYES: Denies visual changes, redness, or discharge. ENT: Reports rhinorrhea, congestion, sore throat, denies otalgia. CARDIOVASCULAR: Denies chest pain, palpitations, or edema. RESPIRATORY: Denies cough or dyspnea. GASTROINTESTINAL: Denies abdominal pain, nausea, vomiting, or diarrhea. GENITOURINARY: Denies dysuria or hematuria. SKIN: Denies rash, itching, or wounds. MUSCULOSKELETAL: Denies back pain, joint pain, or myalgia. NEUROLOGIC: Denies headache, numbness, tingling, or weakness. PSYCH: Denies depression or anxiety. All systems reviewed & are unremarkable except as noted in HPI and below PMFSH Past Medical History Medical History Borderline diabetes Hyperlipidemia Exam Narrative: GENERAL: Well-appearing, well-nourished, obese, and in no acute distress. HEAD: Normocephalic, atraumatic. EYES: EOMI. No redness or drainage. Conjunctivae normal. ENT: Mucous membranes pink and moist. Nares clear. No rhinorrhea. TMs normal bilaterally. Throat normal Without erythema, edema, exudate, lesions. Uvula midline. no mastoid tenderness. NECK: Normal AROM. Supple. No lymphadenopathy. CHEST: No respiratory distress. Clear to auscultation. HEART: Regular rate and rhythm. No murmur appreciated. Normal peripheral pulses. SKIN: Warm, dry, no rash. Capillary refill normal. Normal skin turgor. NEURO: No focal deficits. Alert and oriented x3. Gait steady. PSYCH: Normal affect. No signs of depression or anxiety. Course Course Level of Care: Express Care Visit Vital Signs Vital signs: Vital Signs Temperature 97.9 F 04/05/25 09:30 Pulse Rate 80 04/05/25 09:30 Respiratory Rate 16 04/05/25 09:30 Blood Pressure 122/80 04/05/25 09:30 Pulse Oximetry 100 04/05/25 09:30 Temperature 97.9 F 04/05/25 09:30 Pulse Rate 80 04/05/25 09:30 Respiratory Rate 16 04/05/25 09:30 Blood Pressure 122/80 04/05/25 09:30 Pulse Oximetry 100 04/05/25 09:30 Medical Decision Making MDM Narrative Medical decision making narrative: offered POC strep test, patient declined. Vital Signs Vital Signs: Vital Signs Temperature 97.9 F 04/05/25 09:30 Pulse Rate 80 04/05/25 09:30 Respiratory Rate 16 04/05/25 09:30 Blood Pressure 122/80 04/05/25 09:30 Pulse Oximetry 100 04/05/25 09:30 Temperature 97.9 F 04/05/25 09:30 Pulse Rate 80 04/05/25 09:30 Respiratory Rate 16 04/05/25 09:30 Blood Pressure 122/80 04/05/25 09:30 Pulse Oximetry 100 04/05/25 09:30 Lab Data Lab results reviewed: Yes I reviewed the patient's lab results. Labs: Lab Results 04/05/25 Range/Units 09:40 POC Influenza A Ag Negative (Negative) POC Influenza B Ag Negative (Negative) POC SARS CoV-2 Ag Negative (Negative) Discharge Plan Discharge Clinical Impression: Upper respiratory infection Qualifiers: URI type: acute nasopharyngitis (common cold) Qualified Code(s): J00 - Acute nasopharyngitis [common cold] Patient Disposition: Home Condition: Stable Instructions: Antibiotic Form, Cold Symptoms (ED) Additional Instructions: Go straight to ER should your symptoms become worse or should any new symptoms develop Patient Language: Fijian Prescriptions: No Action spironolactone 100 mg tablet 100 mg PO DAILY rosuvastatin 10 mg tablet 10 mg PO DAILY cetirizine [24Hour Allergy] 10 mg tablet 10 mg PO DAILY Follow-up/Referrals: Chris,RENATA Aponte [Primary Care Provider, Unknown] - 04/06/25 Time of Disposition: 09:40
[2025-04-05 09:30] VITALS: BP 122/80; PULSE 80; RESP 16; TEMP 36.6; O2SAT 100
[2025-04-05 09:45] LABS: EDCOVIDSCREEN Negative (Negative); EDINFLUASCREEN Negative (Negative); EDINFLUBSCREEN Negative (Negative)
== END 2025-04-05 09:43 | disposition home or self-care (01) ==
PROVIDERS: Emergency Provider Registered Nurse; PCP Physician Assistant
DX: J00 Acute nasopharyngitis [common cold] (principal); E78.5 Hyperlipidemia, unspecified; Z79.899 Other long term (current) drug therapy; Z20.822 Contact with and (suspected) exposure to COVID-19
CPT/HCPCS: 87426; 87804; 99213; G0463